=== PATIENT | male | born 1960 | race Caucasian/White ===

== ENCOUNTER 2017-01-09 13:07 | Inpatient (IN) | payer OTHER ==
[2017-01-09 14:01] VITALS: BMI 22.3
[2017-01-09] MEDS ORDERED: LOPERAMIDE HCL 2 MG CAPSULE PO PRN (17:03)
[2017-01-09] MEDS ORDERED: ACETAMINOPHEN 325 MG TABLET (FP) PO PRN (17:03)
[2017-01-09] MEDS ORDERED: MAGNESIUM HYDROX 2400MG/30ML ORAL SUSPENSION 30 ML CUP PO PRN (17:03)
[2017-01-09] MEDS ORDERED: MAG HYDROX/AL HYDROX/SIMETH 30 ML UNIT-DOSE CUP PO PRN (17:03)
[2017-01-09] MEDS ORDERED: hydrOXYzine PAMOATE 50 MG CAPSULE (FP) PO PRN (17:03)
[2017-01-09] MEDS ORDERED: MAGNESIUM CITRATE 300 ML BOTTLE PO PRN (17:03)
[2017-01-09] MEDS ORDERED: NICOTINE POLACRILEX 2 MG GUM BC PRN (17:03)
[2017-01-09] MEDS ORDERED: P-EPHED 60MG/TRIPROLIDI 2.5MG TABLET PO PRN (17:03)
[2017-01-09] MEDS ORDERED: MENTHOL/PHENOL 1 EACH UD MM PRN (17:03)
[2017-01-09] MEDS ORDERED: ALBUTEROL SO4 6.7 GM HFA INHALER IH PRN (17:05)
--- NOTE | 2017-01-09 17:10 | HP ---
Admission [facility] Chief Complaint: requesting inpatient rehab from heroin and cocaine use Allergies/Adverse Reactions: Allergies Allergy/AdvReac Type Severity Reaction Status Date / Time olanzapine [From Zyprexa] Allergy Severe Difficulty Verified 01/09/17 15:54 Breathing quetiapine fumarate AdvReac Intermediate Verified 01/09/17 15:54 [From Seroquel] History of Present Illness: 56 yo m with h/o heroin and cocaine abuse with recent increase in use associated with homelessness, recently made homeless and now requesting rehab, was denied inpat detox this weekend as no withdrawawl sx, does not have withdrwal sx when he stops using heroin last used 3 days ago PMHX nicotien dependence, 1?2 PPD, ASTHMA,major depresssion, not on meds, HIV+, allergies, now with cough no h/o seiuzres, DTS denies alohol or other drug use. has nto been taking hiv meds because of homelessness. viral load previously undetectable , cleared Hep c with treatment Exam Limitations: No Limitations - Ebola screening Have you traveled outside of the country in the last 21 days: No Have you had contact with anyone from an Ebola affected area: No Have you been sick,other than usual withdrawal symptoms: No Do you have a fever: No - Review of Systems Constitutional: Malaise EENT: reports: No Symptoms Reported, Nose Congestion (herion withdrawal sx?) Respiratory: reports: Cough, SOB with Exertion, Productive cough GI: reports: No Symptoms Reported, Poor Appetite, Poor Fluid Intake : reports: No Symptoms Reported Musculoskeletal: reports: No Symptoms Reported Integumentary: reports: No Symptoms Reported Neuro: reports: No Symptoms reported Endocrine: reports: No Symptoms Reported Hematology: reports: No Symptoms Reported Psychiatric: reports: Judgement Intact, Mood/Affect Appropiate, Orientated x3, Agitated, Anxious, Depressed Other Systems: Reviewed and Negative Patient History - Patient Medical History Hx Anemia: No Hx Asthma: Yes (albuterol mdi prn) Hx Chronic Obstructive Pulmonary Disease (COPD): No Hx Cancer: No Hx Cardiac Disorders: No Hx Congestive Heart Failure: No Hx Hypertension: No Hx Hypercholesterolemia: No Hx Pacemaker: No HX Cerebrovascular Accident: No Hx Seizures: No Hx Dementia: No Hx Diabetes: No Hx Gastrointestinal Disorders: No Hx Liver Disease: No Hx Genitourinary Disorders: No Hx Sexually Transmitted Disorders: No Hx Renal Disease (ESRD): No Hx Thyroid Disease: No Hx Human Immunodeficiency Virus (HIV): Yes (SINCE 1982, on HAART) Hx Hepatitis C: Yes (in treatment since 02/23 month ago) Hx Depression: Yes (not on medication, was on zoloft in the past) Hx Suicide Attempt: No Hx Bipolar Disorder: No Hx Schizophrenia: No - Patient Surgical History Past Surgical History: No Hx Neurologic Surgery: No Hx Cataract Extraction: No Hx Cardiac Surgery: No Hx Lung Surgery: No Hx Breast Surgery: No Hx Breast Biopsy: No Hx Abdominal Surgery: No Hx Appendectomy: No Hx Cholecystectomy: No Hx Genitourinary Surgery: No Hx Orthopedic Surgery: No Hx Hysterectomy: No Anesthesia Reaction: (NA) - PPD History Previous Implant?: No Date: 12/04/15 Results: 0 MM PPD to be Administered?: Yes - Reproductive History Patient is a Female of Child Bearing Age (11 -55 yrs old): No Patient : No - Smoking Cessation Smoking history: Current every day smoker Have you smoked in the past 12 months: Yes Aproximately how many cigarettes per day: 10 Cigars Per Day: 0 Hx Chewing Tobacco Use: No Initiated information on smoking cessation: Yes 'Breaking Loose' booklet given: 01/09/17 - Substance & Tx. History Hx Alcohol Use: No Hx Substance Use: Yes Substance Use Type: Cocaine, Heroin Hx Substance Use Treatment: Yes - Substances Abused Heroin Route: Injection Frequency: 3-6 times per week Amount used: 1 BAG Age of first use: 8 Date of Last Use: 01/06/17 Cocaine Route: Injection Frequency: 3-6 times per week Amount used: $30 Age of first use: 11 Date of Last Use: 01/06/17 Family Disease History - Family Disease History Family Disease History: Other: Father (ALCOHOL,), Mother (ALCOHOL, DESEASED) Admission Physical Exam BHS - Vital Signs Vital Signs: Vital Signs - 24 hr 01/09/17 13:59 Temperature 97 F L Pulse Rate 77 Respiratory 20 Rate Blood Pressure 113/74 - Physical General Appearance: Yes: Within Normal Limits, Appropriately Dressed, Disheveled , Mild Distress, Thin, Anxious HEENTM: Yes: EOMI, Hearing grossly Normal, Normal ENT Inspection, Normocephalic , Normal Voice, DANIEL, Nasal Congestion, Rhinorrhea Respiratory: Yes: Within Normal Limits, Chest Non-Tender, Lungs Clear, Normal Breath Sounds, No Respiratory Distress, No Accessory Muscle Use Neck: Yes: Within Normal Limits, No masses,lesions,Nodules, Supple, Trachea in good position Breast: Yes: Breast Exam Deferred Cardiology: Yes: Within Normal Limits, Regular Rhythm, Regular Rate, S1, S2 Abdominal: Yes: Within Normal Limits, Normal Bowel Sounds, Non Tender, Flat, Soft Genitourinary: Yes: Within Normal Limits Back: Yes: Within Normal Limits, Normal Inspection Extremities: Yes: Within Normal Limits, Normal Capillary Refill, Normal Inspection, Normal Range of Motion, Non-Tender Neurological: Yes: 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 NML intact, Fully Oriented, Alert, Motor Strength 5/5, Normal Response, Depressed Affect Integumentary: Yes: Within Normal Limits, Normal Color, Dry, Warm Lymphatic: Yes: Within Normal Limits - Addiitonal Findings: malaise and nasal congestion possibly from heroin withdrawal - Diagnostic (1) Cocaine dependence Current Visit: Yes Status: Chronic Qualifiers: Substance use status: uncomplicated Qualified Code(s): F14.20 - Cocaine dependence, uncomplicated (2) Opioid dependence with withdrawal Current Visit: Yes Status: Chronic (3) Asthma Current Visit: Yes Status: Chronic Qualifiers: Asthma severity: mild intermittent (4) HIV (human immunodeficiency virus infection) Current Visit: Yes Status: Chronic (5) Hepatitis C Current Visit: No Status: Resolved Qualifiers: Viral hepatitis chronicity: chronic Hepatic coma status: without hepatic coma Qualified Code(s): B18.2 - Chronic viral hepatitis C (6) Nicotine dependence Current Visit: Yes Status: Chronic Qualifiers: Nicotine product type: cigarettes Substance use status: uncomplicated Qualified Code(s): F17.210 - Nicotine dependence, cigarettes, uncomplicated (7) Weight loss Current Visit: Yes Status: Acute Cleared for Admission S - Detox or Rehab Claeared for Rehab Admission: Yes [facility] Breath Alcohol Content Breath Alcohol Content: 0 Urine Drug Screen - Results Drug Screen Negative: No Urine Drug Screen Results: ANI-Cocaine Inpatient Rehab Admission - Initial Determination Are CD services needed?: Yes Free of communicable disease: Yes Not in need of hospitalization: Yes - Rehab Admission Criteria Poor recovery environment: Yes Patient is meeting Inpatient Rehab admission criteria:: Yes
[2017-01-09] MEDS ORDERED: TUBERCULIN PPD 5 TU/0.1ML VIAL ID ONE (20:37)
[2017-01-09 21:23] LABS: URINE APPEARANCE SLCLOUDY; URINE BILIRUBIN NEGATIVE (NEGATIVE); URINE BLOOD NEGATIVE (NEGATIVE); URINE COLOR YELLOW; URINE GLUCOSE (UA) NEGATIVE (NEGATIVE); URINE KETONE NEGATIVE (NEGATIVE); URINE LEUK ESTERASE NEGATIVE (NEGATIVE); URINE NITRITE NEGATIVE (NEGATIVE); URINE PROTEIN NEGATIVE (NEGATIVE); URINE UROBILINOGEN NEGATIVE mg/dL (0.2-1.0)
[2017-01-09] MEDS: LORATADINE 10 MG TABLET PO SCH (21:23)
[2017-01-09] MEDS: NICOTINE 14 MG/24 HOURS TOPICAL PATCH TD SCH (21:24)
[2017-01-09] MEDS: diphenhydrAMINE HCL 50 MG CAPSULE PO PRN (21:24)
[2017-01-09] MEDS: THIAMINE HCL 100 MG TABLET (FP) PO SCH (21:24)
[2017-01-09] MEDS: FLUTICASONE PROP 0.05% 16 GM NASAL SPRAY NS SCH (23:07)
[2017-01-10] MEDS: FLUTICASONE PROP 0.05% 16 GM NASAL SPRAY NS SCH (10:10)
[2017-01-10] MEDS: NICOTINE 14 MG/24 HOURS TOPICAL PATCH TD SCH (10:10)
[2017-01-10] MEDS: LORATADINE 10 MG TABLET PO SCH (10:10)
[2017-01-10] MEDS: PRENATAL VITAMINS W/ FOLIC ACID TABLET (FP) PO SCH (10:10)
[2017-01-10] MEDS: guaiFENesin/D-METHORPHAN HB 10 ML UNIT-DOSE CUPS PO PRN ×2 (10:11→21:21)
[2017-01-10 14:06] LABS: MCH 28.9 pg (25.7-33.7); MCHC 32.1 g/dl (32.0-35.9); MEAN CELL VOLUME 90.1 fl (80-96); MEAN PLT VOLUME 7.9 fl (7.5-11.1); PLATELET COUNT 237 K/MM3 (134-434); RDW 14.8 % (11.9-15.9); WHITE BLOOD COUNT 4.2 K/mm3 (4.0-10.0)
[2017-01-10 14:31] LABS: ALBUMIN 3.5 g/dl (3.4-5.0); ALK PHOS 94 U/L (45-117); ANION GAP 8 (8-16); BILIRUBIN,TOTAL 0.5 mg/dL (0.2-1.0); CALCIUM 8.8 mg/dL (8.5-10.1); CO2 29 mmol/L (21-32); CREATININE 0.9 mg/dL (0.7-1.3); GLUCOSE,RANDOM 69 mg/dL (74-106); SGOT/AST 8 U/L (15-37); SGPT/ALT 12 U/L (12-78)
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
[2017-01-10] MEDS: THIAMINE HCL 100 MG TABLET (FP) PO SCH (21:19)
--- NOTE | 2017-01-10 22:28 | EKG ---
Test Reason : Blood Pressure : / mmHG Vent. Rate : 072 BPM Atrial Rate : 072 BPM P-R Int : 148 ms QRS Dur : 078 ms QT Int : 380 ms P-R-T Axes : 056 051 056 degrees QTc Int : 416 ms NORMAL SINUS RHYTHM NORMAL ECG NO PREVIOUS ECGS AVAILABLE Confirmed by DEBORAH ULLOA MD ([id number]) on 01/10/2017 10:28:29 PM Referred By: Viky Sánchez Confirmed By:DEBORAH ULLOA MD
[2017-01-11] MEDS: IBUPROFEN 400 MG TABLET (FP) PO PRN (06:15)
[2017-01-11] MEDS: NICOTINE 14 MG/24 HOURS TOPICAL PATCH TD SCH (10:07)
[2017-01-11] MEDS: PRENATAL VITAMINS W/ FOLIC ACID TABLET (FP) PO SCH (10:07)
[2017-01-11] MEDS: LORATADINE 10 MG TABLET PO SCH (10:07)
[2017-01-11] MEDS: FLUTICASONE PROP 0.05% 16 GM NASAL SPRAY NS SCH (10:07)
[2017-01-11] MEDS: guaiFENesin/D-METHORPHAN HB 10 ML UNIT-DOSE CUPS PO PRN ×2 (10:09→21:26)
[2017-01-11] MEDS: diphenhydrAMINE HCL 50 MG CAPSULE PO PRN (21:25)
[2017-01-11] MEDS: THIAMINE HCL 100 MG TABLET (FP) PO SCH (21:25)
[2017-01-12] MEDS: LORATADINE 10 MG TABLET PO SCH (10:11)
[2017-01-12] MEDS: guaiFENesin/D-METHORPHAN HB 10 ML UNIT-DOSE CUPS PO PRN ×2 (10:12→21:24)
[2017-01-12] MEDS: PRENATAL VITAMINS W/ FOLIC ACID TABLET (FP) PO SCH (10:12)
[2017-01-12] MEDS: FLUTICASONE PROP 0.05% 16 GM NASAL SPRAY NS SCH (11:07)
[2017-01-12] MEDS: NICOTINE 14 MG/24 HOURS TOPICAL PATCH TD SCH (11:07)
[2017-01-12] MEDS: IBUPROFEN 400 MG TABLET (FP) PO PRN ×2 (14:40→21:23)
[2017-01-12] MEDS: THIAMINE HCL 100 MG TABLET (FP) PO SCH (21:22)
[2017-01-13] MEDS: FLUTICASONE PROP 0.05% 16 GM NASAL SPRAY NS SCH (10:09)
[2017-01-13] MEDS: LORATADINE 10 MG TABLET PO SCH (10:09)
[2017-01-13] MEDS: PRENATAL VITAMINS W/ FOLIC ACID TABLET (FP) PO SCH (10:09)
[2017-01-13] MEDS: NICOTINE 14 MG/24 HOURS TOPICAL PATCH TD SCH (10:09)
[2017-01-13] MEDS: IBUPROFEN 400 MG TABLET (FP) PO PRN ×2 (10:10→16:57)
[2017-01-13] MEDS: guaiFENesin/D-METHORPHAN HB 10 ML UNIT-DOSE CUPS PO PRN ×2 (10:10→21:21)
[2017-01-13] MEDS: THIAMINE HCL 100 MG TABLET (FP) PO SCH (21:19)
[2017-01-13] MEDS: diphenhydrAMINE HCL 50 MG CAPSULE PO PRN (21:20)
[2017-01-14] MEDS: FLUTICASONE PROP 0.05% 16 GM NASAL SPRAY NS SCH (10:20)
[2017-01-14] MEDS: LORATADINE 10 MG TABLET PO SCH (10:20)
[2017-01-14] MEDS: NICOTINE 14 MG/24 HOURS TOPICAL PATCH TD SCH (10:20)
[2017-01-14] MEDS: PRENATAL VITAMINS W/ FOLIC ACID TABLET (FP) PO SCH (10:20)
[2017-01-14] MEDS: guaiFENesin/D-METHORPHAN HB 10 ML UNIT-DOSE CUPS PO PRN ×2 (10:22→21:11)
[2017-01-14] MEDS: IBUPROFEN 400 MG TABLET (FP) PO PRN ×2 (10:22→21:12)
[2017-01-14] MEDS: THIAMINE HCL 100 MG TABLET (FP) PO SCH (21:10)
[2017-01-14] MEDS: diphenhydrAMINE HCL 50 MG CAPSULE PO PRN (21:11)
[2017-01-15] MEDS: PRENATAL VITAMINS W/ FOLIC ACID TABLET (FP) PO SCH (09:54)
[2017-01-15] MEDS: LORATADINE 10 MG TABLET PO SCH (09:54)
[2017-01-15] MEDS: NICOTINE 14 MG/24 HOURS TOPICAL PATCH TD SCH (09:54)
[2017-01-15] MEDS: FLUTICASONE PROP 0.05% 16 GM NASAL SPRAY NS SCH (09:55)
[2017-01-15] MEDS: IBUPROFEN 400 MG TABLET (FP) PO PRN ×2 (09:56→21:21)
[2017-01-15] MEDS: guaiFENesin/D-METHORPHAN HB 10 ML UNIT-DOSE CUPS PO PRN ×2 (09:57→21:19)
[2017-01-15] MEDS: THIAMINE HCL 100 MG TABLET (FP) PO SCH (21:18)
[2017-01-16] MEDS: PRENATAL VITAMINS W/ FOLIC ACID TABLET (FP) PO SCH (10:22)
[2017-01-16] MEDS: FLUTICASONE PROP 0.05% 16 GM NASAL SPRAY NS SCH (10:22)
[2017-01-16] MEDS: LORATADINE 10 MG TABLET PO SCH (10:22)
[2017-01-16] MEDS: NICOTINE 14 MG/24 HOURS TOPICAL PATCH TD SCH (10:23)
[2017-01-16] MEDS: IBUPROFEN 400 MG TABLET (FP) PO PRN (10:24)
[2017-01-16] MEDS: PANTOPRAZOLE 40 MG TABLET (FP) PO SCH (15:14)
[2017-01-16] MEDS: NAPROXEN 500 MG TABLET (FP) PO SCH (21:02)
[2017-01-16] MEDS: diphenhydrAMINE HCL 50 MG CAPSULE PO PRN (21:03)
[2017-01-16] MEDS: THIAMINE HCL 100 MG TABLET (FP) PO SCH (21:03)
[2017-01-16] MEDS: AMOXICILLIN 250 MG CAPSULE PO SCH (21:03)
[2017-01-17] MEDS: NAPROXEN 500 MG TABLET (FP) PO SCH ×2 (10:07→21:31)
[2017-01-17] MEDS: AMOXICILLIN 250 MG CAPSULE PO SCH ×2 (10:07→23:13)
[2017-01-17] MEDS: LORATADINE 10 MG TABLET PO SCH (10:07)
[2017-01-17] MEDS: PRENATAL VITAMINS W/ FOLIC ACID TABLET (FP) PO SCH (10:08)
[2017-01-17] MEDS: PANTOPRAZOLE 40 MG TABLET (FP) PO SCH (10:08)
[2017-01-17] MEDS: FLUTICASONE PROP 0.05% 16 GM NASAL SPRAY NS SCH (10:08)
[2017-01-17] MEDS: NICOTINE 14 MG/24 HOURS TOPICAL PATCH TD SCH (10:08)
[2017-01-17] MEDS: diphenhydrAMINE HCL 50 MG CAPSULE PO PRN (21:31)
[2017-01-17] MEDS: THIAMINE HCL 100 MG TABLET (FP) PO SCH (21:31)
[2017-01-18] MEDS: PANTOPRAZOLE 40 MG TABLET (FP) PO SCH (09:51)
[2017-01-18] MEDS: LORATADINE 10 MG TABLET PO SCH (09:51)
[2017-01-18] MEDS: PRENATAL VITAMINS W/ FOLIC ACID TABLET (FP) PO SCH (09:51)
[2017-01-18] MEDS: AMOXICILLIN 250 MG CAPSULE PO SCH ×2 (09:51→21:25)
[2017-01-18] MEDS: NAPROXEN 500 MG TABLET (FP) PO SCH ×2 (09:52→21:25)
[2017-01-18] MEDS: FLUTICASONE PROP 0.05% 16 GM NASAL SPRAY NS SCH (09:52)
[2017-01-18] MEDS: NICOTINE 14 MG/24 HOURS TOPICAL PATCH TD SCH (09:52)
[2017-01-18] MEDS: guaiFENesin/D-METHORPHAN HB 10 ML UNIT-DOSE CUPS PO PRN (21:26)
[2017-01-18] MEDS: THIAMINE HCL 100 MG TABLET (FP) PO SCH (21:27)
[2017-01-19 06:56] VITALS: TEMP 97.4
[2017-01-19] MEDS: NAPROXEN 500 MG TABLET (FP) PO SCH ×2 (10:23→21:26)
[2017-01-19] MEDS: PANTOPRAZOLE 40 MG TABLET (FP) PO SCH (10:23)
[2017-01-19] MEDS: NICOTINE 14 MG/24 HOURS TOPICAL PATCH TD SCH (10:23)
[2017-01-19] MEDS: PRENATAL VITAMINS W/ FOLIC ACID TABLET (FP) PO SCH (10:23)
[2017-01-19] MEDS: AMOXICILLIN 250 MG CAPSULE PO SCH ×2 (10:23→21:26)
[2017-01-19] MEDS: FLUTICASONE PROP 0.05% 16 GM NASAL SPRAY NS SCH (10:23)
[2017-01-19] MEDS: LORATADINE 10 MG TABLET PO SCH (10:23)
[2017-01-19] MEDS: guaiFENesin/D-METHORPHAN HB 10 ML UNIT-DOSE CUPS PO PRN (21:27)
[2017-01-19] MEDS: THIAMINE HCL 100 MG TABLET (FP) PO SCH (21:27)
[2017-01-19] MEDS: diphenhydrAMINE HCL 50 MG CAPSULE PO PRN (23:45)
[2017-01-20 07:15] VITALS: BP 134/80; PULSE 64
--- NOTE | 2017-01-20 11:25 | PN ---
S Progress Note Note: as was reported by the staff patient signed out ama this morning, please see medical staff notes.
== END 2017-01-20 07:35 | disposition home or self-care (01) | DRG 772 ==
LOC: YASAS 13:07 → Y5N 17:42
PROVIDERS: ADMIT Psychiatry & Neurology Psychiatry; ATTEND Psychiatry & Neurology Psychiatry
PROC: HZ42ZZZ Group Counseling for Substance Abuse Treatment, Cognitive-Behavioral (ICD-10-PCS; principal; 2017-01-09)
DX: F11.20 Opioid dependence, uncomplicated (principal); F14.20 Cocaine dependence, uncomplicated; F17.210 Nicotine dependence, cigarettes, uncomplicated; F32.9 Major depressive disorder, single episode, unspecified; B18.2 Chronic viral hepatitis C; Z21 Asymptomatic human immunodeficiency virus [HIV] infection status; J45.909 Unspecified asthma, uncomplicated; Z59.0 Homelessness
CPT/HCPCS: 36415; 80053; 81003; 85027; 86593; 93005; 93010

== ENCOUNTER 2017-05-07 11:02 | Inpatient (IN) | payer OTHER ==
[2017-05-07 11:36] VITALS: BMI 22.8
--- NOTE | 2017-05-07 12:12 | HP ---
CIWA Score - CIWA Score Nausea/Vomitin Muscle Tremors: 3 Anxiety: 3 Agitation: 3 Paroxysmal Sweats: 2 Orientation: 0-Oriented Tacttile Disturbances: 2-Mild Itch/Numbness/Burn Auditory Disturbances: 2-Mild Harshness/Frighten Visual Disturbances: 1-Very Mild Sensitivity Headache: 2-Mild CIWA-Ar Total Score: 21 Admission ROS BHS - HPI Chief Complaint: i need help to stop drinking alcohol,cocaine,heroin Allergies/Adverse Reactions: Allergies Allergy/AdvReac Type Severity Reaction Status Date / Time olanzapine [From Zyprexa] Allergy Severe Difficulty Verified 01/09/17 15:54 Breathing quetiapine fumarate AdvReac Intermediate Verified 01/09/17 15:54 [From Seroquel] History of Present Illness: this 56 years old male with alcohol,cocaine dependence heroin dependence, withdrawal symptom,seeking detox,last treatment rehab [facility]01/09/17 to 01/20/17 hiv since 1984 weight loss hepatitis c treated in 2014 asthma depression longest period of sobriety 5 years Exam Limitations: No Limitations - Ebola screening Have you traveled outside of the country in the last 21 days: No Have you had contact with anyone from an Ebola affected area: No Have you been sick,other than usual withdrawal symptoms: No Do you have a fever: No - Review of Systems Constitutional: Chills, Loss of Appetite, Malaise, Night Sweats, Changes in sleep, Weakness, Unintentional Wgt. Loss EENT: reports: Tearing, Nose Congestion Respiratory: reports: Other (asthma) Cardiac: reports: No Symptoms Reported GI: reports: Abd. Pain w/ defecation, Blood Streaked Bowels, Constipated, Diarrhea : reports: No Symptoms Reported Musculoskeletal: reports: Back Pain, Joint Pain, Muscle Pain Integumentary: reports: Dryness Neuro: reports: Headache, Tremors Endocrine: reports: No Symptoms Reported Hematology: reports: No Symptoms Reported, Other (hiv) Psychiatric: reports: Depressed Patient History - Patient Medical History Hx Anemia: No Hx Asthma: Yes (on albuterol inhaler) Hx Chronic Obstructive Pulmonary Disease (COPD): No Hx Cancer: No Hx Cardiac Disorders: No Hx Congestive Heart Failure: No Hx Hypertension: No Hx Hypercholesterolemia: No Hx Pacemaker: No HX Cerebrovascular Accident: No Hx Seizures: No Hx Dementia: No Hx Diabetes: No Hx Gastrointestinal Disorders: No Hx Liver Disease: No Hx Genitourinary Disorders: No Hx Sexually Transmitted Disorders: No Hx Renal Disease (ESRD): No Hx Thyroid Disease: No Hx Human Immunodeficiency Virus (HIV): Yes (SINCE 1982, on HAART) Hx Hepatitis C: Yes (in treatment since 112 month ago) Hx Depression: Yes Hx Suicide Attempt: No Hx Bipolar Disorder: No Hx Schizophrenia: No Other Medical History: no suicidal,no homicidal - Patient Surgical History Past Surgical History: No Hx Neurologic Surgery: No Hx Cataract Extraction: No Hx Cardiac Surgery: No Hx Lung Surgery: No Hx Breast Surgery: No Hx Breast Biopsy: No Hx Abdominal Surgery: No Hx Appendectomy: No Hx Cholecystectomy: No Hx Genitourinary Surgery: No Hx Orthopedic Surgery: No Hx Hysterectomy: No Anesthesia Reaction: (NA) - PPD History Previous Implant?: Yes Documented Results: Negative w/proof Date: 01/11/17 Results: 0 MM PPD to be Administered?: No - Smoking Cessation Smoking history: Current every day smoker Have you smoked in the past 12 months: Yes Aproximately how many cigarettes per day: 10 Cigars Per Day: 0 Hx Chewing Tobacco Use: No Initiated information on smoking cessation: Yes 'Breaking Loose' booklet given: 05/07/17 - Substance & Tx. History Hx Alcohol Use: Yes Hx Substance Use: Yes Substance Use Type: Alcohol, Cocaine Hx Substance Use Treatment: Yes ([facility] to 01/20/17 rehab) - Substances Abused Alcohol Route: Oral Frequency: Daily Amount used: 6 packs of 24 ozs of beer Age of first use: 16 Date of Last Use: 05/06/17 Cocaine Route: Injection Frequency: 3-6 times per week Amount used: 80$ Age of first use: 11 Date of Last Use: 05/05/17 Heroin Route: Injection Frequency: 3-6 times per week Amount used: 3 bags Age of first use: 8 Date of Last Use: 05/05/17 Family Disease History - Family Disease History Family Disease History: Other: Father (ALCOHOL,), Mother (ALCOHOL, DESEASED) Admission Physical Exam BHS - Vital Signs Vital Signs: Vital Signs - 24 hr 05/07/17 11:30 Temperature 96 F L Pulse Rate 64 Respiratory 20 Rate Blood Pressure 131/82 - Physical General Appearance: Yes: Moderate Distress, Tremorous, Irritable, Sweating, Anxious HEENTM: Yes: Normal ENT Inspection, Normocephalic, DANIEL, Pharynx Normal, Microcephalic Respiratory: Yes: Within Normal Limits, Normal Breath Sounds Neck: Yes: Within Normal Limits, Supple, Trachea in good position Breast: Yes: Within Normal Limits Cardiology: Yes: Within Normal Limits, Regular Rhythm, Regular Rate, S1, S2 Abdominal: Yes: Within Normal Limits, Normal Bowel Sounds, Non Tender, Flat, Soft Genitourinary: Yes: Within Normal Limits Back: Yes: Muscle Spasm Extremities: Yes: Within Normal Limits, Tremors 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, Fully Oriented, Alert, Motor Strength 5/5 Integumentary: Yes: Dry Lymphatic: Yes: Within Normal Limits - Diagnostic (1) Alcohol dependence with uncomplicated withdrawal Current Visit: Yes Status: Acute (2) Opioid dependence Current Visit: No Status: Acute (3) Weight loss Current Visit: No Status: Acute (4) Asthma Current Visit: No Status: Chronic Qualifiers: Asthma severity: mild intermittent (5) Cocaine dependence Current Visit: No Status: Chronic Qualifiers: Substance use status: uncomplicated Qualified Code(s): F14.20 - Cocaine dependence, uncomplicated (6) HIV (human immunodeficiency virus infection) Current Visit: No Status: Chronic (7) Nicotine dependence Current Visit: No Status: Chronic Qualifiers: Nicotine product type: cigarettes Substance use status: uncomplicated Qualified Code(s): F17.210 - Nicotine dependence, cigarettes, uncomplicated (8) Depression Current Visit: Yes Status: Acute Cleared for Admission [facility] - Detox or Rehab [facility] Level of Care: Medically Managed Detox Regimen/Protocol: Librium (urine for drug scree showed negative for opiate ,patien is aware he will not get methadone) [facility] Breath Alcohol Content Breath Alcohol Content: 0 Urine Drug Screen - Results Drug Screen Negative: No Urine Drug Screen Results: ANI-Cocaine
[2017-05-07] MEDS ORDERED: hydrOXYzine PAMOATE 50 MG CAPSULE (FP) PO PRN (12:27)
[2017-05-07] MEDS ORDERED: IBUPROFEN 400 MG TABLET (FP) PO PRN (12:27)
[2017-05-07] MEDS ORDERED: MAGNESIUM CITRATE 300 ML BOTTLE PO PRN (12:27)
[2017-05-07] MEDS ORDERED: NICOTINE POLACRILEX 2 MG GUM BC PRN (12:27)
[2017-05-07] MEDS ORDERED: P-EPHED 60MG/TRIPROLIDI 2.5MG TABLET PO PRN (12:27)
[2017-05-07] MEDS ORDERED: MAGNESIUM HYDROX 2400MG/30ML ORAL SUSPENSION 30 ML CUP PO PRN (12:27)
[2017-05-07] MEDS ORDERED: LOPERAMIDE HCL 2 MG CAPSULE PO PRN (12:27)
[2017-05-07] MEDS ORDERED: chlordiazePOXIDE HCL 25 MG CAPSULE PO PRN (12:27)
[2017-05-07] MEDS ORDERED: MENTHOL/PHENOL 1 EACH UD MM PRN (12:27)
[2017-05-07] MEDS ORDERED: ACETAMINOPHEN 325 MG TABLET (FP) PO PRN (12:27)
[2017-05-07] MEDS ORDERED: MAG HYDROX/AL HYDROX/SIMETH 30 ML UNIT-DOSE CUP PO PRN (12:27)
[2017-05-07] MEDS: CYCLOBENZAPRINE HCL 10 MG TABLET (FP) PO SCH ×2 (14:45→22:28)
[2017-05-07] MEDS ORDERED: chlordiazePOXIDE HCL 25 MG CAPSULE PO ONE (15:30)
[2017-05-07 16:35] LABS: URINE APPEARANCE CLEAR; URINE BILIRUBIN NEGATIVE (NEGATIVE); URINE BLOOD NEGATIVE (NEGATIVE); URINE COLOR YELLOW; URINE GLUCOSE (UA) NEGATIVE (NEGATIVE); URINE KETONE NEGATIVE (NEGATIVE); URINE LEUK ESTERASE NEGATIVE (NEGATIVE); URINE NITRITE NEGATIVE (NEGATIVE); URINE PROTEIN NEGATIVE (NEGATIVE); URINE UROBILINOGEN NEGATIVE mg/dL (0.2-1.0)
[2017-05-07] MEDS: chlordiazePOXIDE HCL 25 MG CAPSULE PO SCH ×2 (18:00→22:28)
[2017-05-07] MEDS: THIAMINE HCL 100 MG TABLET (FP) PO SCH (22:28)
[2017-05-07] MEDS: cloNIDine HCL 0.1 MG TABLET PO SCH (22:28)
[2017-05-08] MEDS: CYCLOBENZAPRINE HCL 10 MG TABLET (FP) PO SCH ×3 (05:30→22:21)
[2017-05-08] MEDS: chlordiazePOXIDE HCL 25 MG CAPSULE PO SCH ×4 (05:30→22:22)
[2017-05-08 09:55] LABS: HEMOGLOBIN 13.1 GM/dL (11.7-16.9); MCH 29.4 pg (25.7-33.7); MCHC 32.8 g/dl (32.0-35.9); MEAN CELL VOLUME 89.6 fl (80-96); MEAN PLT VOLUME 7.8 fl (7.5-11.1); PLATELET COUNT 239 K/MM3 (134-434); RBC 4.47 M/mm3 (4.00-5.60); RDW 14.4 % (11.9-15.9); WHITE BLOOD COUNT 9.2 K/mm3 (4.0-10.0)
[2017-05-08 10:24] LABS: ALBUMIN 3.2 g/dl (3.4-5.0); ANION GAP 7 (8-16); BLOOD UREA NITROGEN 21 mg/dL (7-18); CALCIUM 8.2 mg/dL (8.5-10.1); CHLORIDE 109 mmol/L (98-107); CO2 23 mmol/L (21-32); GLUCOSE,RANDOM 104 mg/dL (74-106); POTASSIUM 3.9 mmol/L (3.5-5.1); SGOT/AST 11 U/L (15-37); SODIUM 139 mmol/L (136-145)
[2017-05-08 10:26] LABS: ALK PHOS 65 U/L (45-117); BILIRUBIN,TOTAL 0.4 mg/dL (0.2-1.0); SGPT/ALT 16 U/L (12-78); TOT PROT 6.9 g/dl (6.4-8.2)
--- NOTE | 2017-05-08 10:39 | EKG ---
Test Reason : Blood Pressure : / mmHG Vent. Rate : 064 BPM Atrial Rate : 064 BPM P-R Int : 154 ms QRS Dur : 080 ms QT Int : 404 ms P-R-T Axes : 050 037 049 degrees QTc Int : 416 ms NORMAL SINUS RHYTHM NORMAL ECG WHEN COMPARED WITH ECG OF 09-JAN-2017 22:16, NO SIGNIFICANT CHANGE WAS FOUND Confirmed by MISTY VIEIRA MD ([id number]) on 05/08/2017 10:39:03 AM Referred By: Confirmed By:MISTY VIEIRA MD
[2017-05-08] MEDS: PRENATAL VITAMINS W/ FOLIC ACID TABLET (FP) PO SCH (11:45)
[2017-05-08] MEDS: cloNIDine HCL 0.1 MG TABLET PO SCH ×2 (11:46→22:21)
--- NOTE | 2017-05-08 11:46 | PN ---
S CIWA - CIWA Score Nausea/Vomitin Muscle Tremors: 3 Anxiety: 3 Agitation: 3 Paroxysmal Sweats: 1-Minimal Palms Moist Orientation: 0-Oriented Tacttile Disturbances: 1-Very Mild Itch/Numbness Auditory Disturbances: 1-Very Mild Visual Disturbances: 0-None Headache: 2-Mild CIWA-Ar Total Score: 17 BHS Progress Note (SOAP) Subjective: ALERT,IRRITABLE,ANXIOUS,INTERRUPTED SLEEP,TREMOR,PAIN IN THE BODY,BACK Objective: 05/08/17 11:43 Vital Signs Temperature 99.0 F 05/08/17 06:00 Pulse Rate 100 H 05/08/17 06:00 Respiratory Rate 16 05/08/17 06:00 Blood Pressure 102/56 05/08/17 06:00 O2 Sat by Pulse Oximetry (%) EKG NSR,NORMAL ECG Laboratory Last Values WBC 9.2 K/mm3 (4.0-10.0) D 05/08/17 07:30 RBC 4.47 M/mm3 (4.00-5.60) 05/08/17 07:30 Hgb 13.1 GM/dL (11.7-16.9) 05/08/17 07:30 Hct 40.0 % (35.4-49) 05/08/17 07:30 MCV 89.6 fl (80-96) 05/08/17 07:30 MCH 29.4 pg (25.7-33.7) 05/08/17 07:30 MCHC 32.8 g/dl (32.0-35.9) 05/08/17 07:30 RDW 14.4 % (11.9-15.9) 05/08/17 07:30 Plt Count 239 K/MM3 (134-434) 05/08/17 07:30 MPV 7.8 fl (7.5-11.1) 05/08/17 07:30 Sodium 139 mmol/L (136-145) 05/08/17 07:30 Potassium 3.9 mmol/L (3.5-5.1) 05/08/17 07:30 Chloride 109 mmol/L (98-107) H 05/08/17 07:30 Carbon Dioxide 23 mmol/L (21-32) D 05/08/17 07:30 Anion Gap 7 (8-16) L 05/08/17 07:30 BUN 21 mg/dL (7-18) H 05/08/17 07:30 Creatinine 1.0 mg/dL (0.7-1.3) 05/08/17 07:30 Creat Clearance w eGFR > 60 (>60) 05/08/17 07:30 Random Glucose 104 mg/dL (74-106) D 05/08/17 07:30 Calcium 8.2 mg/dL (8.5-10.1) L 05/08/17 07:30 Total Bilirubin 0.4 mg/dL (0.2-1.0) 05/08/17 07:30 AST 11 U/L (15-37) L D 05/08/17 07:30 ALT 16 U/L (12-78) D 05/08/17 07:30 Alkaline Phosphatase 65 U/L (45-117) D 05/08/17 07:30 Total Protein 6.9 g/dl (6.4-8.2) 05/08/17 07:30 Albumin 3.2 g/dl (3.4-5.0) L 05/08/17 07:30 Urine Color Yellow 05/07/17 15:33 Urine Appearance Clear 05/07/17 15:33 Urine pH 6.0 (5.0-8.0) 05/07/17 15:33 Ur Specific [place] 1.023 (1.001-1.035) 05/07/17 15:33 Urine Protein Negative (NEGATIVE) 05/07/17 15:33 Urine Glucose (UA) Negative (NEGATIVE) 05/07/17 15:33 Urine Ketones Negative (NEGATIVE) 05/07/17 15:33 Urine Blood Negative (NEGATIVE) 05/07/17 15:33 Urine Nitrite Negative (NEGATIVE) 05/07/17 15:33 Urine Bilirubin Negative (NEGATIVE) 05/07/17 15:33 Urine Urobilinogen Negative mg/dL (0.2-1.0) 05/07/17 15:33 Ur Leukocyte Esterase Negative (NEGATIVE) 05/07/17 15:33 Assessment: 05/08/17 11:45 WITHDRAWAL SYMPTOM Plan: CONTINUE DETOX
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
[2017-05-08] MEDS: THIAMINE HCL 100 MG TABLET (FP) PO SCH (22:21)
[2017-05-08] MEDS: guaiFENesin/D-METHORPHAN HB 10 ML UNIT-DOSE CUPS PO PRN (22:22)
[2017-05-09] MEDS: CYCLOBENZAPRINE HCL 10 MG TABLET (FP) PO SCH ×3 (05:21→22:43)
[2017-05-09] MEDS: chlordiazePOXIDE HCL 25 MG CAPSULE PO SCH ×2 (05:21→10:40)
[2017-05-09] MEDS ORDERED: ALBUTEROL SO4 18 GM HFA INHALER IH PRN (06:12)
[2017-05-09] MEDS: PRENATAL VITAMINS W/ FOLIC ACID TABLET (FP) PO SCH (10:40)
[2017-05-09] MEDS: cloNIDine HCL 0.1 MG TABLET PO SCH ×2 (10:40→22:43)
--- NOTE | 2017-05-09 12:57 | PN ---
[facility] CIWA - CIWA Score Nausea/Vomitin-Mild Nausea/No Vomiting Muscle Tremors: 4-Moderate,w/Arms Extend Anxiety: 3 Agitation: 1-Slight > Activity Paroxysmal Sweats: 3 Orientation: 0-Oriented Tacttile Disturbances: 1-Very Mild Itch/Numbness Auditory Disturbances: 0-None Visual Disturbances: 0-None Headache: 3-Moderate CIWA-Ar Total Score: 16 S Progress Note (SOAP) Subjective: Alert, chills, sweats, interrupted sleep, headache, body aches Objective: 05/09/17 12:54 Vital Signs Temperature 97.7 F 05/09/17 10:17 Pulse Rate 118 H 05/09/17 10:17 Respiratory Rate 18 05/09/17 10:17 Blood Pressure 110/57 05/09/17 10:17 O2 Sat by Pulse Oximetry (%) Laboratory Last Values WBC 9.2 K/mm3 (4.0-10.0) D 05/08/17 07:30 RBC 4.47 M/mm3 (4.00-5.60) 05/08/17 07:30 Hgb 13.1 GM/dL (11.7-16.9) 05/08/17 07:30 Hct 40.0 % (35.4-49) 05/08/17 07:30 MCV 89.6 fl (80-96) 05/08/17 07:30 MCH 29.4 pg (25.7-33.7) 05/08/17 07:30 MCHC 32.8 g/dl (32.0-35.9) 05/08/17 07:30 RDW 14.4 % (11.9-15.9) 05/08/17 07:30 Plt Count 239 K/MM3 (134-434) 05/08/17 07:30 MPV 7.8 fl (7.5-11.1) 05/08/17 07:30 Sodium 139 mmol/L (136-145) 05/08/17 07:30 Potassium 3.9 mmol/L (3.5-5.1) 05/08/17 07:30 Chloride 109 mmol/L (98-107) H 05/08/17 07:30 Carbon Dioxide 23 mmol/L (21-32) D 05/08/17 07:30 Anion Gap 7 (8-16) L 05/08/17 07:30 BUN 21 mg/dL (7-18) H 05/08/17 07:30 Creatinine 1.0 mg/dL (0.7-1.3) 05/08/17 07:30 Creat Clearance w eGFR > 60 (>60) 05/08/17 07:30 Random Glucose 104 mg/dL (74-106) D 05/08/17 07:30 Calcium 8.2 mg/dL (8.5-10.1) L 05/08/17 07:30 Total Bilirubin 0.4 mg/dL (0.2-1.0) 05/08/17 07:30 AST 11 U/L (15-37) L D 05/08/17 07:30 ALT 16 U/L (12-78) D 05/08/17 07:30 Alkaline Phosphatase 65 U/L (45-117) D 05/08/17 07:30 Total Protein 6.9 g/dl (6.4-8.2) 05/08/17 07:30 Albumin 3.2 g/dl (3.4-5.0) L 05/08/17 07:30 Urine Color Yellow 05/07/17 15:33 Urine Appearance Clear 05/07/17 15:33 Urine pH 6.0 (5.0-8.0) 05/07/17 15:33 Ur Specific [place] 1.023 (1.001-1.035) 05/07/17 15:33 Urine Protein Negative (NEGATIVE) 05/07/17 15:33 Urine Glucose (UA) Negative (NEGATIVE) 05/07/17 15:33 Urine Ketones Negative (NEGATIVE) 05/07/17 15:33 Urine Blood Negative (NEGATIVE) 05/07/17 15:33 Urine Nitrite Negative (NEGATIVE) 05/07/17 15:33 Urine Bilirubin Negative (NEGATIVE) 05/07/17 15:33 Urine Urobilinogen Negative mg/dL (0.2-1.0) 05/07/17 15:33 Ur Leukocyte Esterase Negative (NEGATIVE) 05/07/17 15:33 RPR Titer Nonreactive (NONREACTIVE) 05/08/17 07:30 Labs noted Assessment: 05/09/17 12:55 withdrawal symptoms Plan: Continue detox Increase fluids Acetaminophen for Headache PRN Continue to monitor
[2017-05-09] MEDS: chlordiazePOXIDE 5 MG CAPSULE PO SCH ×2 (18:04→22:43)
[2017-05-09] MEDS: THIAMINE HCL 100 MG TABLET (FP) PO SCH (22:43)
[2017-05-10] MEDS: CYCLOBENZAPRINE HCL 10 MG TABLET (FP) PO SCH ×3 (05:39→22:33)
[2017-05-10] MEDS: chlordiazePOXIDE 5 MG CAPSULE PO SCH ×2 (05:39→10:37)
[2017-05-10] MEDS: cloNIDine HCL 0.1 MG TABLET PO SCH ×2 (10:37→22:33)
[2017-05-10] MEDS: PRENATAL VITAMINS W/ FOLIC ACID TABLET (FP) PO SCH (10:37)
[2017-05-10] MEDS: guaiFENesin/D-METHORPHAN HB 10 ML UNIT-DOSE CUPS PO PRN (10:40)
--- NOTE | 2017-05-10 11:32 | PN ---
[facility] Progress Note (SOAP) Subjective: interrupted sleep, sweats , shakes ,nasal congestion, cough Objective: 05/10/17 11:29 Vital Signs Temperature 98.2 F 05/10/17 04:00 Pulse Rate 75 05/10/17 04:00 Respiratory Rate 16 05/10/17 04:00 Blood Pressure 101/64 05/10/17 04:00 O2 Sat by Pulse Oximetry (%) Laboratory Tests 05/07/17 05/08/17 05/08/17 15:33 07:30 07:30 WBC 9.2 D RBC 4.47 Hgb 13.1 Hct 40.0 MCV 89.6 MCH 29.4 MCHC 32.8 RDW 14.4 Plt Count 239 MPV 7.8 Sodium 139 Potassium 3.9 Chloride 109 H Carbon Dioxide 23 D Anion Gap 7 L BUN 21 H Creatinine 1.0 Creat Clearance w eGFR > 60 Random Glucose 104 D Calcium 8.2 L Total Bilirubin 0.4 AST 11 L D ALT 16 D Alkaline Phosphatase 65 D Total Protein 6.9 Albumin 3.2 L Urine Color Yellow Urine Appearance Clear Urine pH 6.0 Ur Specific [place] 1.023 Urine Protein Negative Urine Glucose (UA) Negative Urine Ketones Negative Urine Blood Negative Urine Nitrite Negative Urine Bilirubin Negative Urine Urobilinogen Negative Ur Leukocyte Esterase Negative RPR Titer 05/08/17 07:30 WBC RBC Hgb Hct MCV MCH MCHC RDW Plt Count MPV Sodium Potassium Chloride Carbon Dioxide Anion Gap BUN Creatinine Creat Clearance w eGFR Random Glucose Calcium Total Bilirubin AST ALT Alkaline Phosphatase Total Protein Albumin Urine Color Urine Appearance Urine pH Ur Specific [place] Urine Protein Urine Glucose (UA) Urine Ketones Urine Blood Urine Nitrite Urine Bilirubin Urine Urobilinogen Ur Leukocyte Esterase RPR Titer Nonreactive pt aox3 in nad ambulating + nasal congestion Assessment: 05/10/17 11:31 withdrawal sx's nasal lucía. HIV 05/10/17 11:32 Plan: continue detox increase fluids flonase nasal
[2017-05-10] MEDS: chlordiazePOXIDE HCL 10 MG CAPSULE PO SCH ×2 (17:37→22:33)
[2017-05-10] MEDS: THIAMINE HCL 100 MG TABLET (FP) PO SCH (22:33)
[2017-05-11] MEDS: chlordiazePOXIDE HCL 10 MG CAPSULE PO SCH (05:32)
[2017-05-11] MEDS: CYCLOBENZAPRINE HCL 10 MG TABLET (FP) PO SCH (05:33)
[2017-05-11] MEDS: guaiFENesin/D-METHORPHAN HB 10 ML UNIT-DOSE CUPS PO PRN (05:35)
--- NOTE | 2017-05-11 09:01 | DS ---
[facility] Detox Discharge Summary Admission Date: 05/07/17 Discharge Date: 05/11/17 - History Present History: Cocaine Dependence, Opioid Dependence - Physical Exam Results Vital Signs: Vital Signs Temperature 98.2 F 05/11/17 07:30 Pulse Rate 96 H 05/11/17 07:30 Respiratory Rate 05/11/17 06:00 Blood Pressure 105/65 05/11/17 06:00 O2 Sat by Pulse Oximetry (%) - Treatment Hospital Course: Detox Protocol Followed, Detoxed Safely, Responded well, Discharged Condition Good, Rehab Referral Accepted - Medication Discharge Medications: Ambulatory Orders Abacavir/Dolutegravir/Lamivudi [Triumeq Tablet] 1 each PO DAILY 01/09/17 Albuterol Sulfate Inhaler - [Ventolin Hfa Inhaler -] 2 inh PO Q4H PRN 01/09/17 - Diagnosis (1) Depression Current Visit: Yes Status: Acute (2) Alcohol dependence with uncomplicated withdrawal Current Visit: Yes Status: Chronic (3) Asthma Current Visit: Yes Status: Chronic Qualifiers: Asthma severity: mild intermittent (4) HIV (human immunodeficiency virus infection) Current Visit: Yes Status: Chronic (5) Opioid dependence Current Visit: Yes Status: Chronic Qualifiers: Substance use status: uncomplicated Qualified Code(s): F11.20 - Opioid dependence, uncomplicated (6) Substance induced mood disorder Current Visit: Yes Status: Chronic (7) Weight loss Current Visit: No Status: Acute (8) Cocaine dependence Current Visit: Yes Status: Chronic Qualifiers: Substance use status: uncomplicated Qualified Code(s): F14.20 - Cocaine dependence, uncomplicated (9) Nicotine dependence Current Visit: Yes Status: Chronic Qualifiers: Nicotine product type: cigarettes Substance use status: uncomplicated Qualified Code(s): F17.210 - Nicotine dependence, cigarettes, uncomplicated (10) Opioid dependence with withdrawal Current Visit: Yes Status: Chronic - AMA Did Patient Leave Against Medical Advice: No
[2017-05-11 09:20] VITALS: BP 94/66; PULSE 104; TEMP 97.9
[2017-05-11] MEDS ORDERED: FLUTICASONE PROP 0.05% 16 GM NASAL SPRAY NS SCH (10:00)
== END 2017-05-11 11:13 | disposition home or self-care (01) | DRG 773 ==
LOC: YASAS 11:02 → Y6N 13:01
PROVIDERS: ADMIT Internal Medicine; ATTEND Internal Medicine
PROC: HZ2ZZZZ Detoxification Services for Substance Abuse Treatment (ICD-10-PCS; principal; 2017-05-07)
DX: F11.23 Opioid dependence with withdrawal (principal); F10.230 Alcohol dependence with withdrawal, uncomplicated; F14.20 Cocaine dependence, uncomplicated; F17.210 Nicotine dependence, cigarettes, uncomplicated; F19.24 Other psychoactive substance dependence with psychoactive substance-induced mood disorder; F32.9 Major depressive disorder, single episode, unspecified; Z21 Asymptomatic human immunodeficiency virus [HIV] infection status; J45.909 Unspecified asthma, uncomplicated; R09.81 Nasal congestion; B18.2 Chronic viral hepatitis C; Z88.8 Allergy status to other drugs, medicaments and biological substances; Z87.898 Personal history of other specified conditions
CPT/HCPCS: 36415; 80053; 81003; 85027; 86593; 93005; 93010

== ENCOUNTER 2017-07-06 09:34 | Inpatient (IN) | payer OTHER ==
[2017-07-06 10:10] VITALS: BMI 23.3
--- NOTE | 2017-07-06 11:57 | HP ---
COWS - Scale Resting Pulse: 1= [place] 81-100 Sweatin= Chills/Flushing Restless Observation: 1= Difficult to Sit Still Pupil Size: 1= Pupils >than Normal Bone or Joint Aches: 1= Mild Discomfort Runny Nose/ Eye Tearin= Runny Nose/Eyes GI Upset > 30mins: 2= Nausea/Diarrhea Tremor Observation: 2= Slight Tremor Visible Yawning Observation: 1= 1-2x During Session Anxiety or Irritability: 2=Irritable/Anxious Goose Flesh Skin: 3=Piloerection COWS Score: 17 CIWA Score - CIWA Score Nausea/Vomitin Muscle Tremors: 3 Anxiety: 3 Agitation: 3 Paroxysmal Sweats: 3 Orientation: 0-Oriented Tacttile Disturbances: 1-Very Mild Itch/Numbness Auditory Disturbances: 0-None Visual Disturbances: 0-None Headache: 1-Very Mild CIWA-Ar Total Score: 17 Admission ROS BHS - HPI Chief Complaint: alcohol and heroin withdrawal sx Allergies/Adverse Reactions: Allergies Allergy/AdvReac Type Severity Reaction Status Date / Time olanzapine [From Zyprexa] Allergy Severe Difficulty Verified 07/06/17 10:44 Breathing quetiapine fumarate AdvReac Intermediate Verified 07/06/17 10:44 [From Seroquel] History of Present Illness: 56 yo m with severe opioid use diorder, multiple inpatient detox fication from heroin, drugs of choice prior to admission were heorin and cocaine idu but recently ahs aded beer more days tehen not to his regimen. no h/o seiures, dts or si. thirsty, dehydratid, PMHX hiv+ on medications, taking but does not have them with him, asthma, allergies Exam Limitations: No Limitations - Ebola screening Have you traveled outside of the country in the last 21 days: No Have you had contact with anyone from an Ebola affected area: No Have you been sick,other than usual withdrawal symptoms: No Do you have a fever: No - Review of Systems Constitutional: Diaphoresis, Night Sweats, Changes in sleep, Unintentional Wgt. Loss EENT: reports: Tearing, Nose Congestion Respiratory: reports: Cough (mucous), SOB with Exertion, Wheezing (asthma) Cardiac: reports: No Symptoms Reported GI: reports: Diarrhea, Nausea, Poor Appetite, Poor Fluid Intake, Vomiting, Indigestion, Abdominal cramping : reports: No Symptoms Reported Musculoskeletal: reports: Joint Pain, Muscle Pain Integumentary: reports: Flushing, Sweating Neuro: reports: Headache, Numbness, Tingling, Tremors Endocrine: reports: Increased Thirst Hematology: reports: No Symptoms Reported Psychiatric: reports: Judgement Intact, Mood/Affect Appropiate, Orientated x3, Anxious, Depressed Other Systems: Reviewed and Negative Patient History - Patient Medical History Hx Anemia: No Hx Asthma: Yes Hx Chronic Obstructive Pulmonary Disease (COPD): No Hx Cancer: No Hx Cardiac Disorders: No Hx Congestive Heart Failure: No Hx Hypertension: No Hx Hypercholesterolemia: No Hx Pacemaker: No HX Cerebrovascular Accident: No Hx Seizures: No Hx Dementia: No Hx Diabetes: No Hx Gastrointestinal Disorders: No Hx Liver Disease: No Hx Genitourinary Disorders: No Hx Sexually Transmitted Disorders: No Hx Renal Disease (ESRD): No Hx Thyroid Disease: No Hx Human Immunodeficiency Virus (HIV): Yes (SINCE 1982, on HAART) Hx Hepatitis C: Yes (cleared with treatment) Hx Depression: Yes Hx Suicide Attempt: No (no si at this tie) Hx Bipolar Disorder: No Hx Schizophrenia: No - Patient Surgical History Past Surgical History: No Hx Neurologic Surgery: No Hx Cataract Extraction: No Hx Cardiac Surgery: No Hx Lung Surgery: No Hx Breast Surgery: No Hx Breast Biopsy: No Hx Abdominal Surgery: No Hx Appendectomy: No Hx Cholecystectomy: No Hx Genitourinary Surgery: No Hx Orthopedic Surgery: No Hx Hysterectomy: No Anesthesia Reaction: No (NA) - PPD History Previous Implant?: Yes Date: 01/11/17 Results: 0 MM - Reproductive History Patient is a Female of Child Bearing Age (11 -55 yrs old): No Patient : No - Smoking Cessation Smoking history: Current every day smoker Have you smoked in the past 12 months: Yes Aproximately how many cigarettes per day: 10 Cigars Per Day: 0 Hx Chewing Tobacco Use: No Initiated information on smoking cessation: Yes 'Breaking Loose' booklet given: 07/06/17 - Substance & Tx. History Hx Alcohol Use: Yes Hx Substance Use: Yes Substance Use Type: Alcohol, Cocaine, Heroin, Opiates Hx Substance Use Treatment: Yes (detox and rehab at [facility] in past) - Substances Abused Cocaine Route: Smoking Frequency: 1-2 times per week Amount used: $150 Age of first use: 11 Date of Last Use: 07/06/17 Heroin Route: Injection Frequency: Daily Amount used: 3 BAGS Age of first use: 8 Date of Last Use: 07/04/17 Alcohol Route: Oral Frequency: 1-2 times per week Amount used: 6 PACKS Age of first use: 15 Date of Last Use: 07/03/17 Family Disease History - Family Disease History Family Disease History: Other: Father (ALCOHOL,), Mother (ALCOHOL, DESEASED) Admission Physical Exam [facility] - Vital Signs Vital Signs: Vital Signs - 24 hr 07/06/17 10:08 Temperature 97 F L Pulse Rate 86 Respiratory 20 Rate Blood Pressure 116/77 - Physical General Appearance: Yes: Appropriately Dressed, Disheveled, Moderate Distress, Thin, Tremorous, Irritable, Sweating, Anxious HEENTM: Yes: EOMI, Hearing grossly Normal, Normocephalic, Normal Voice, DANIEL, Pharynx Normal, Nasal Congestion, Rhinorrhea Respiratory: Yes: Within Normal Limits, Chest Non-Tender, Lungs Clear, Normal Breath Sounds, No Respiratory Distress, No Accessory Muscle Use Neck: Yes: Within Normal Limits, No masses,lesions,Nodules, Supple, Trachea in good position Breast: Yes: Breast Exam Deferred Cardiology: Yes: Within Normal Limits, Regular Rhythm, Regular Rate, S1, S2 Abdominal: Yes: Within Normal Limits, Normal Bowel Sounds, Non Tender, Flat, Soft, Increased Bowel Sounds Genitourinary: Yes: Within Normal Limits Back: Yes: Normal Inspection, Muscle Spasm Musculoskeletal: Yes: full range of Motion, Gait Steady, Pelvis Stable, Back pain, Muscle Pain Extremities: Yes: Normal Capillary Refill, Normal Inspection, Normal Range of Motion, Non-Tender Neurological: Yes: tech writer II-XII NML intact, Fully Oriented, Alert, Motor Strength 5/5, Normal Response, Depressed Affect Integumentary: Yes: Normal Color, Warm, Diaphoresis, Moist, Track Hicks Lymphatic: Yes: Within Normal Limits - Addiitonal Findings: withdrawal sx - Diagnostic (1) Depression Current Visit: No Status: Acute (2) Weight loss Current Visit: No Status: Acute (3) Alcohol dependence with uncomplicated withdrawal Current Visit: No Status: Chronic (4) Asthma Current Visit: No Status: Chronic Qualifiers: Asthma severity: mild intermittent (5) Cocaine dependence Current Visit: No Status: Chronic Qualifiers: Substance use status: uncomplicated Qualified Code(s): F14.20 - Cocaine dependence, uncomplicated (6) HIV (human immunodeficiency virus infection) Current Visit: No Status: Chronic (7) Nicotine dependence Current Visit: No Status: Chronic Qualifiers: Nicotine product type: cigarettes Substance use status: uncomplicated Qualified Code(s): F17.210 - Nicotine dependence, cigarettes, uncomplicated (8) Opioid dependence with withdrawal Current Visit: No Status: Chronic (9) Substance induced mood disorder Current Visit: No Status: Chronic Cleared for Admission S - Detox or Rehab [facility] Level of Care: Medically Managed Detox Regimen/Protocol: Methadone/Valium, Valium S Breath Alcohol Content Breath Alcohol Content: 0 Urine Drug Screen - Results Drug Screen Negative: No Urine Drug Screen Results: ANI-Cocaine
[2017-07-06] MEDS ORDERED: MAGNESIUM CITRATE 300 ML BOTTLE PO PRN (11:59)
[2017-07-06] MEDS ORDERED: P-EPHED 60MG/TRIPROLIDI 2.5MG TABLET PO PRN (11:59)
[2017-07-06] MEDS ORDERED: NICOTINE POLACRILEX 2 MG GUM BUC PRN (11:59)
[2017-07-06] MEDS ORDERED: MAG HYDROX/AL HYDROX/SIMETH 30 ML UNIT-DOSE CUP PO PRN (11:59)
[2017-07-06] MEDS ORDERED: guaiFENesin/D-METHORPHAN HB 10 ML UNIT-DOSE CUPS PO PRN (11:59)
[2017-07-06] MEDS ORDERED: ACETAMINOPHEN 325 MG TABLET (FP) PO PRN (11:59)
[2017-07-06] MEDS ORDERED: MENTHOL/PHENOL 1 EACH UD MM PRN (11:59)
[2017-07-06] MEDS ORDERED: LOPERAMIDE HCL 2 MG CAPSULE PO PRN (11:59)
[2017-07-06] MEDS ORDERED: IBUPROFEN 400 MG TABLET (FP) PO PRN (11:59)
[2017-07-06] MEDS ORDERED: hydrOXYzine PAMOATE 50 MG CAPSULE (FP) PO PRN (11:59)
[2017-07-06] MEDS ORDERED: MAGNESIUM HYDROX 2400MG/30ML ORAL SUSPENSION 30 ML CUP PO PRN (11:59)
[2017-07-06] MEDS ORDERED: ALBUTEROL SO4 18 GM HFA INHALER IH PRN (12:01)
[2017-07-06] MEDS ORDERED: diazePAM 5 MG TABLET PO ONE (12:50)
[2017-07-06] MEDS ORDERED: METHADONE HCL 10 MG TABLET (FOR DETOX USE ONLY) PO ONE ×2 (13:00→23:00)
[2017-07-06] MEDS: NICOTINE 21 MG/24 HOURS TOPICAL PATCH TD SCH (13:46)
[2017-07-06] MEDS: diazePAM 5 MG TABLET PO SCH ×2 (13:47→22:45)
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
[2017-07-06] MEDS: ABACAVIR/DOLUTEGRAVIR/LAMIVUDI (TRIUMEQ) TABLET -NF PO SCH (15:29)
--- NOTE | 2017-07-06 16:43 | EKG ---
Test Reason : Blood Pressure : / mmHG Vent. Rate : 080 BPM Atrial Rate : 080 BPM P-R Int : 150 ms QRS Dur : 076 ms QT Int : 380 ms P-R-T Axes : 054 061 036 degrees QTc Int : 438 ms NORMAL SINUS RHYTHM NORMAL ECG WHEN COMPARED WITH ECG OF 07-MAY-2017 14:40, NO SIGNIFICANT CHANGE WAS FOUND Confirmed by CECE HUDDLESTON MD ([id number]) on 07/06/2017 4:43:14 PM Referred By: Confirmed By:CECE HUDDLESTON MD
[2017-07-06 17:23] LABS: URINE APPEARANCE CLEAR; URINE BILIRUBIN NEGATIVE (NEGATIVE); URINE BLOOD NEGATIVE (NEGATIVE); URINE COLOR YELLOW; URINE GLUCOSE (UA) NEGATIVE (NEGATIVE); URINE KETONE 1+ (NEGATIVE); URINE LEUK ESTERASE NEGATIVE (NEGATIVE); URINE NITRITE NEGATIVE (NEGATIVE); URINE PROTEIN NEGATIVE (NEGATIVE)
[2017-07-06] MEDS: diazePAM 5 MG TABLET PO PRN (17:47)
[2017-07-06] MEDS: SERTRALINE HCL 25 MG TABLET (FP) PO SCH (22:45)
[2017-07-06] MEDS: THIAMINE HCL 100 MG TABLET (FP) PO SCH (22:45)
[2017-07-07] MEDS: diazePAM 5 MG TABLET PO SCH ×4 (06:03→22:19)
[2017-07-07] MEDS ORDERED: METHADONE HCL 10 MG TABLET (FOR DETOX USE ONLY) PO SCH (10:00)
[2017-07-07 10:05] LABS: HEMOGLOBIN 13.8 GM/dL (11.7-16.9); MCH 30.8 pg (25.7-33.7); MCHC 33.6 g/dl (32.0-35.9); MEAN CELL VOLUME 91.6 fl (80-96); MEAN PLT VOLUME 7.4 fl (7.5-11.1); PLATELET COUNT 246 K/MM3 (134-434); RBC 4.47 M/mm3 (4.00-5.60); RDW 14.5 % (11.9-15.9); WHITE BLOOD COUNT 3.3 K/mm3 (4.0-10.0)
[2017-07-07 10:26] LABS: ALBUMIN 4.1 g/dl (3.4-5.0); ANION GAP 7 (8-16); CHLORIDE 108 mmol/L (98-107); CO2 27 mmol/L (21-32); GLUCOSE,RANDOM 70 mg/dL (74-106); POTASSIUM 4.7 mmol/L (3.5-5.1); SODIUM 142 mmol/L (136-145)
[2017-07-07 10:31] LABS: ALK PHOS 70 U/L (45-117); BILIRUBIN,TOTAL 0.7 mg/dL (0.2-1.0); BLOOD UREA NITROGEN 19 mg/dL (7-18); CREATININE 1.1 mg/dL (0.7-1.3); SGOT/AST 22 U/L (15-37); SGPT/ALT 20 U/L (12-78); TOT PROT 8.1 g/dl (6.4-8.2)
[2017-07-07] MEDS: PRENATAL VITAMINS W/ FOLIC ACID TABLET (FP) PO SCH (10:54)
[2017-07-07] MEDS: ABACAVIR/DOLUTEGRAVIR/LAMIVUDI (TRIUMEQ) TABLET -NF PO SCH (10:54)
[2017-07-07] MEDS: NICOTINE 21 MG/24 HOURS TOPICAL PATCH TD SCH (10:54)
[2017-07-07] MEDS: diazePAM 5 MG TABLET PO PRN (10:54)
[2017-07-07] MEDS ORDERED: diphenhydrAMINE HCL 50 MG CAPSULE PO PRN (10:59)
--- NOTE | 2017-07-07 15:57 | PN ---
[facility] CIWA - CIWA Score Nausea/Vomitin-No Nausea/No Vomiting Muscle Tremors: 2 Anxiety: 4-Mod. Anxious/Guarded Agitation: 3 Paroxysmal Sweats: 3 Orientation: 0-Oriented Tacttile Disturbances: 3-Moderate Itch/Numb/Burn Auditory Disturbances: 0-None Visual Disturbances: 2-Mild Sensitivity Headache: 0-None Present CIWA-Ar Total Score: 17 S COWS - Scale Resting Pulse: 1= [place] 81-100 Sweatin= Chills/Flushing Restless Observation: 1= Difficult to Sit Still Pupil Size: 0= Normal to Room Light Bone or Joint Aches: 2= Severe Diffuse Aches Runny Nose/ Eye Tearin= None GI Upset > 30mins: 2= Nausea/Diarrhea Tremor Observation of Outstretched Hands: 0= None Yawning Observation: 1= 1-2x During Session Anxiety or Irritability: 2=Irritable/Anxious Goose Flesh Skin: 3=Piloerection COWS Score: 13 S Progress Note (SOAP) Subjective: Anxious, Fatigue, Body Aches, Sweating, Diarrhea. Objective: PATIENT A & O X 3, OBSERVED AMBULATING ON UNIT. NO ACUTE DISTRESS. 07/07/17 15:55 Vital Signs Temperature 98.6 F 07/07/17 14:23 Pulse Rate 86 07/07/17 14:23 Respiratory Rate 18 07/07/17 14:23 Blood Pressure 121/74 07/07/17 14:23 O2 Sat by Pulse Oximetry (%) Laboratory Tests 07/06/17 07/07/17 07/07/17 14:00 06:00 06:00 WBC 3.3 L D RBC 4.47 Hgb 13.8 Hct 41.0 MCV 91.6 MCH 30.8 MCHC 33.6 RDW 14.5 Plt Count 246 MPV 7.4 L Sodium 142 Potassium 4.7 D Chloride 108 H Carbon Dioxide 27 Anion Gap 7 L BUN 19 H Creatinine 1.1 Creat Clearance w eGFR > 60 Random Glucose 70 L D Calcium 9.0 Total Bilirubin 0.7 D AST 22 D ALT 20 D Alkaline Phosphatase 70 Total Protein 8.1 Albumin 4.1 D Urine Color Yellow Urine Appearance Clear Urine pH 5.0 Ur Specific [place] 1.027 Urine Protein Negative Urine Glucose (UA) Negative Urine Ketones 1+ H Urine Blood Negative Urine Nitrite Negative Urine Bilirubin Negative Urine Urobilinogen 2.0 Ur Leukocyte Esterase Negative RPR Titer 07/07/17 06:00 WBC RBC Hgb Hct MCV MCH MCHC RDW Plt Count MPV Sodium Potassium Chloride Carbon Dioxide Anion Gap BUN Creatinine Creat Clearance w eGFR Random Glucose Calcium Total Bilirubin AST ALT Alkaline Phosphatase Total Protein Albumin Urine Color Urine Appearance Urine pH Ur Specific [place] Urine Protein Urine Glucose (UA) Urine Ketones Urine Blood Urine Nitrite Urine Bilirubin Urine Urobilinogen Ur Leukocyte Esterase RPR Titer Nonreactive LABS NOTED. Assessment: 07/07/17 15:55 WITHDRAWAL SYMPTOMS. Plan: CONTINUE DETOX. INCREASE DAILY PO FLUID INTAKE.
[2017-07-07] MEDS: SERTRALINE HCL 25 MG TABLET (FP) PO SCH (22:19)
[2017-07-07] MEDS: THIAMINE HCL 100 MG TABLET (FP) PO SCH (22:19)
[2017-07-08] MEDS: diazePAM 5 MG TABLET PO PRN ×2 (06:02→17:19)
[2017-07-08] MEDS ORDERED: METHADONE HCL 5 MG TABLET (FOR DETOX USE ONLY) PO SCH (10:00)
[2017-07-08] MEDS: NICOTINE 21 MG/24 HOURS TOPICAL PATCH TD SCH (10:39)
[2017-07-08] MEDS: ABACAVIR/DOLUTEGRAVIR/LAMIVUDI (TRIUMEQ) TABLET -NF PO SCH (10:39)
[2017-07-08] MEDS: diazePAM 5 MG TABLET PO SCH ×2 (10:39→22:42)
[2017-07-08] MEDS: PRENATAL VITAMINS W/ FOLIC ACID TABLET (FP) PO SCH (10:39)
--- NOTE | 2017-07-08 18:06 | PN ---
[facility] CIWA - CIWA Score Nausea/Vomitin-No Nausea/No Vomiting Muscle Tremors: None Anxiety: 4-Mod. Anxious/Guarded Agitation: 3 Paroxysmal Sweats: 3 Orientation: 0-Oriented Tacttile Disturbances: 2-Mild Itch/Numbness/Burn Auditory Disturbances: 1-Very Mild Visual Disturbances: 2-Mild Sensitivity Headache: 0-None Present CIWA-Ar Total Score: 15 BHS COWS - Scale Resting Pulse: 1= [place] 81-100 Sweatin= Chills/Flushing Restless Observation: 1= Difficult to Sit Still Pupil Size: 0= Normal to Room Light Bone or Joint Aches: 2= Severe Diffuse Aches Runny Nose/ Eye Tearin= None GI Upset > 30mins: 2= Nausea/Diarrhea Tremor Observation of Outstretched Hands: 0= None Yawning Observation: 1= 1-2x During Session Anxiety or Irritability: 2=Irritable/Anxious Goose Flesh Skin: 3=Piloerection COWS Score: 13 S Progress Note (SOAP) Subjective: Diarrhea, Body Aches, Sweating. Objective: PATIENT A & O X 3, OBSERVED AMBULATING ON UNIT. NO ACUTE DISTRESS. 07/08/17 18:06 Vital Signs Temperature 97.0 F L 07/08/17 15:08 Pulse Rate 82 07/08/17 15:08 Respiratory Rate 18 07/08/17 15:08 Blood Pressure 120/78 07/08/17 15:08 O2 Sat by Pulse Oximetry (%) Laboratory Tests 07/06/17 07/07/17 07/07/17 14:00 06:00 06:00 WBC 3.3 L D RBC 4.47 Hgb 13.8 Hct 41.0 MCV 91.6 MCH 30.8 MCHC 33.6 RDW 14.5 Plt Count 246 MPV 7.4 L Sodium 142 Potassium 4.7 D Chloride 108 H Carbon Dioxide 27 Anion Gap 7 L BUN 19 H Creatinine 1.1 Creat Clearance w eGFR > 60 Random Glucose 70 L D Calcium 9.0 Total Bilirubin 0.7 D AST 22 D ALT 20 D Alkaline Phosphatase 70 Total Protein 8.1 Albumin 4.1 D Urine Color Yellow Urine Appearance Clear Urine pH 5.0 Ur Specific [place] 1.027 Urine Protein Negative Urine Glucose (UA) Negative Urine Ketones 1+ H Urine Blood Negative Urine Nitrite Negative Urine Bilirubin Negative Urine Urobilinogen 2.0 Ur Leukocyte Esterase Negative RPR Titer 07/07/17 06:00 WBC RBC Hgb Hct MCV MCH MCHC RDW Plt Count MPV Sodium Potassium Chloride Carbon Dioxide Anion Gap BUN Creatinine Creat Clearance w eGFR Random Glucose Calcium Total Bilirubin AST ALT Alkaline Phosphatase Total Protein Albumin Urine Color Urine Appearance Urine pH Ur Specific [place] Urine Protein Urine Glucose (UA) Urine Ketones Urine Blood Urine Nitrite Urine Bilirubin Urine Urobilinogen Ur Leukocyte Esterase RPR Titer Nonreactive LABS NOTED. Assessment: 07/08/17 18:06 WITHDRAWAL SYMPTOMS. Plan: CONTINUE DETOX. INCREASE DAILY PO FLUID INTAKE.
[2017-07-08] MEDS: THIAMINE HCL 100 MG TABLET (FP) PO SCH (22:42)
[2017-07-08] MEDS: SERTRALINE HCL 25 MG TABLET (FP) PO SCH (22:42)
[2017-07-09] MEDS: PRENATAL VITAMINS W/ FOLIC ACID TABLET (FP) PO SCH (10:23)
[2017-07-09] MEDS: diazePAM 5 MG TABLET PO SCH ×2 (10:23→22:05)
[2017-07-09] MEDS: NICOTINE 21 MG/24 HOURS TOPICAL PATCH TD SCH (10:23)
[2017-07-09] MEDS: ABACAVIR/DOLUTEGRAVIR/LAMIVUDI (TRIUMEQ) TABLET -NF PO SCH (10:24)
--- NOTE | 2017-07-09 16:03 | PN ---
[facility]HS Progress Note (SOAP) Subjective: Back pain, left calf pain/spasm, sweating, interrupted sleep Objective: 07/09/17 16:01 Last Vital Signs Temp Pulse Resp BP Pulse Ox 98.6 F 70 18 133/72 07/09/17 14:44 07/09/17 14:44 07/09/17 14:44 07/09/17 14:44 Laboratory Tests 07/06/17 07/07/17 07/07/17 14:00 06:00 06:00 WBC 3.3 L D RBC 4.47 Hgb 13.8 Hct 41.0 MCV 91.6 MCH 30.8 MCHC 33.6 RDW 14.5 Plt Count 246 MPV 7.4 L Sodium 142 Potassium 4.7 D Chloride 108 H Carbon Dioxide 27 Anion Gap 7 L BUN 19 H Creatinine 1.1 Creat Clearance w eGFR > 60 Random Glucose 70 L D Calcium 9.0 Total Bilirubin 0.7 D AST 22 D ALT 20 D Alkaline Phosphatase 70 Total Protein 8.1 Albumin 4.1 D Urine Color Yellow Urine Appearance Clear Urine pH 5.0 Ur Specific [place] 1.027 Urine Protein Negative Urine Glucose (UA) Negative Urine Ketones 1+ H Urine Blood Negative Urine Nitrite Negative Urine Bilirubin Negative Urine Urobilinogen 2.0 Ur Leukocyte Esterase Negative RPR Titer 07/07/17 06:00 WBC RBC Hgb Hct MCV MCH MCHC RDW Plt Count MPV Sodium Potassium Chloride Carbon Dioxide Anion Gap BUN Creatinine Creat Clearance w eGFR Random Glucose Calcium Total Bilirubin AST ALT Alkaline Phosphatase Total Protein Albumin Urine Color Urine Appearance Urine pH Ur Specific [place] Urine Protein Urine Glucose (UA) Urine Ketones Urine Blood Urine Nitrite Urine Bilirubin Urine Urobilinogen Ur Leukocyte Esterase RPR Titer Nonreactive Labs reviewed Assessment: 07/09/17 16:02 Withdrawal symptoms Plan: Continue detox Encouraged increased PO (water) hydration
[2017-07-09] MEDS: THIAMINE HCL 100 MG TABLET (FP) PO SCH (22:05)
[2017-07-09] MEDS: SERTRALINE HCL 25 MG TABLET (FP) PO SCH (22:48)
[2017-07-10 09:22] VITALS: BP 128/73; PULSE 62; TEMP 95.6
[2017-07-10] MEDS ORDERED: METHADONE HCL 10 MG TABLET (FOR DETOX USE ONLY) PO SCH (10:00)
[2017-07-10] MEDS ORDERED: diazePAM 5 MG TABLET PO SCH (10:00)
[2017-07-10] MEDS: NICOTINE 21 MG/24 HOURS TOPICAL PATCH TD SCH (10:29)
[2017-07-10] MEDS: PRENATAL VITAMINS W/ FOLIC ACID TABLET (FP) PO SCH (10:29)
[2017-07-10] MEDS: ABACAVIR/DOLUTEGRAVIR/LAMIVUDI (TRIUMEQ) TABLET -NF PO SCH (10:29)
--- NOTE | 2017-07-10 12:52 | PN ---
[facility] Progress Note (SOAP) Subjective: Going to [facility] rehab Objective: 07/10/17 12:51 A & O x 3, no acute distress Vital Signs Temperature 95.6 F L 07/10/17 09:21 Pulse Rate 62 07/10/17 09:21 Respiratory Rate 18 07/10/17 09:21 Blood Pressure 128/73 07/10/17 09:21 O2 Sat by Pulse Oximetry (%) Assessment: 07/10/17 12:51 Detox completed Plan: For transfer to rehab
--- NOTE | 2017-07-10 12:56 | DS ---
[facility] Detox Discharge Summary Admission Date: 07/06/17 Discharge Date: 07/10/17 - History Additional Comments: pt being transferred to inhouse rehab - Physical Exam Results Vital Signs: Vital Signs Temperature 95.6 F L 07/10/17 09:21 Pulse Rate 62 07/10/17 09:21 Respiratory Rate 18 07/10/17 09:21 Blood Pressure 128/73 07/10/17 09:21 O2 Sat by Pulse Oximetry (%) Pertinent Admission Physical Exam Findings: withdrawal sx - Treatment Hospital Course: Detox Protocol Followed, Detoxed Safely, Responded well, Discharged Condition Good, Rehab Referral Accepted Patient has Accepted a Rehab Referral to: [facility] rehab - Medication Discharge Medications: Ambulatory Orders Abacavir/Dolutegravir/Lamivudi [Triumeq Tablet] 1 each PO DAILY 01/09/17 Albuterol Sulfate Inhaler - [Ventolin Hfa Inhaler -] 2 inh PO Q4H PRN 01/09/17 Sertraline HCl [Zoloft] 25 mg PO DAILY 07/06/17 - Diagnosis (1) Opioid dependence with withdrawal Current Visit: Yes Status: Acute (2) Alcohol dependence with uncomplicated withdrawal Current Visit: Yes Status: Acute (3) Depression Current Visit: Yes Status: Chronic Qualifiers: Depression Type: unspecified Qualified Code(s): F32.9 - Major depressive disorder, single episode, unspecified (4) Hepatitis C Current Visit: Yes Status: Chronic Qualifiers: Viral hepatitis chronicity: unspecified Hepatic coma status: without hepatic coma Qualified Code(s): B19.20 - Unspecified viral hepatitis C without hepatic coma (5) Substance induced mood disorder Current Visit: Yes Status: Chronic (6) Weight loss Current Visit: Yes Status: Chronic (7) Asthma Current Visit: Yes Status: Chronic Qualifiers: Asthma severity: mild Asthma persistence: intermittent Asthma complication type: uncomplicated Qualified Code(s): J45.20 - Mild intermittent asthma, uncomplicated (8) Cocaine dependence Current Visit: Yes Status: Chronic Qualifiers: Substance use status: uncomplicated Qualified Code(s): F14.20 - Cocaine dependence, uncomplicated (9) Nicotine dependence Current Visit: Yes Status: Chronic Qualifiers: Nicotine product type: cigarettes Substance use status: uncomplicated Qualified Code(s): F17.210 - Nicotine dependence, cigarettes, uncomplicated (10) HIV (human immunodeficiency virus infection) Current Visit: Yes Status: Chronic (11) MDD (major depressive disorder) Current Visit: Yes Status: Chronic - AMA Did Patient Leave Against Medical Advice: No
[2017-07-11] MEDS ORDERED: METHADONE HCL 5 MG TABLET (FOR DETOX USE ONLY) PO SCH (06:00)
== END 2017-07-10 14:39 | disposition other institution (70) | DRG 773 ==
LOC: YASAS 09:34 → Y3N 12:23
PROVIDERS: ADMIT Internal Medicine; ATTEND Internal Medicine
PROC: HZ2ZZZZ Detoxification Services for Substance Abuse Treatment (ICD-10-PCS; principal; 2017-07-06)
DX: F11.23 Opioid dependence with withdrawal (principal); F10.230 Alcohol dependence with withdrawal, uncomplicated; F14.20 Cocaine dependence, uncomplicated; F17.210 Nicotine dependence, cigarettes, uncomplicated; F33.9 Major depressive disorder, recurrent, unspecified; F32.9 Major depressive disorder, single episode, unspecified; F19.24 Other psychoactive substance dependence with psychoactive substance-induced mood disorder; B18.2 Chronic viral hepatitis C; J45.20 Mild intermittent asthma, uncomplicated; Z21 Asymptomatic human immunodeficiency virus [HIV] infection status; Z68.23 Body mass index [BMI] 23.0-23.9, adult; R63.4 Abnormal weight loss
CPT/HCPCS: 36415; 80053; 81003; 85027; 86593; 93005; 93010

== ENCOUNTER 2017-07-10 14:45 | Inpatient (IN) | payer OTHER ==
[2017-07-10] MEDS ORDERED: ALBUTEROL SO4 18 GM HFA INHALER IH PRN (15:06)
[2017-07-10] MEDS ORDERED: MAG HYDROX/AL HYDROX/SIMETH 30 ML UNIT-DOSE CUP PO PRN (15:06)
[2017-07-10] MEDS ORDERED: P-EPHED 60MG/TRIPROLIDI 2.5MG TABLET PO PRN (15:06)
[2017-07-10] MEDS ORDERED: NICOTINE POLACRILEX 2 MG GUM BUC PRN (15:06)
[2017-07-10] MEDS ORDERED: IBUPROFEN 400 MG TABLET (FP) PO PRN (15:06)
[2017-07-10] MEDS ORDERED: LOPERAMIDE HCL 2 MG CAPSULE PO PRN (15:06)
[2017-07-10] MEDS ORDERED: guaiFENesin/D-METHORPHAN HB 10 ML UNIT-DOSE CUPS PO PRN (15:06)
[2017-07-10] MEDS ORDERED: MAGNESIUM CITRATE 300 ML BOTTLE PO PRN (15:06)
[2017-07-10] MEDS ORDERED: MAGNESIUM HYDROX 2400MG/30ML ORAL SUSPENSION 30 ML CUP PO PRN (15:06)
[2017-07-10] MEDS ORDERED: MENTHOL/PHENOL 1 EACH UD MM PRN (15:06)
[2017-07-10] MEDS ORDERED: ALBUTEROL SO4 2.5/IPRATROPIUM 0.5 INH SOL 3 ML VIAL.NEB. NEB PRN (15:07)
--- NOTE | 2017-07-10 15:07 | HP ---
PAWAN [facility]LL Rehab Assess/Revision - Admission History Admitted to Rehab from: [facility] Date of Admission to Rehab: 07/10/17 - Findings Detox History & Physical reviewed: Yes Concur with findings: Yes Inpatient Rehab Admission - Initial Determination Are CD services needed?: Yes Free of communicable disease: Yes Not in need of hospitalization: Yes - Rehab Admission Criteria Previous failed treatment: Yes Poor recovery environment: Yes Comorbidities: Yes Lacks judgement: Yes Patient is meeting Inpatient Rehab admission criteria:: Yes
[2017-07-10] MEDS: THIAMINE HCL 100 MG TABLET (FP) PO SCH (21:20)
[2017-07-10] MEDS: hydrOXYzine PAMOATE 50 MG CAPSULE (FP) PO PRN (21:21)
[2017-07-11] MEDS: ABACAVIR/DOLUTEGRAVIR/LAMIVUDI (TRIUMEQ) TABLET -NF PO SCH (10:02)
[2017-07-11] MEDS: PRENATAL VITAMINS W/ FOLIC ACID TABLET (FP) PO SCH (10:02)
[2017-07-11] MEDS: NICOTINE 14 MG/24 HOURS TOPICAL PATCH TD SCH (10:02)
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
[2017-07-11] MEDS: THIAMINE HCL 100 MG TABLET (FP) PO SCH (21:09)
[2017-07-11] MEDS: hydrOXYzine PAMOATE 50 MG CAPSULE (FP) PO PRN (21:10)
[2017-07-12] MEDS: ABACAVIR/DOLUTEGRAVIR/LAMIVUDI (TRIUMEQ) TABLET -NF PO SCH (09:56)
[2017-07-12] MEDS: NICOTINE 14 MG/24 HOURS TOPICAL PATCH TD SCH (09:56)
[2017-07-12] MEDS: PRENATAL VITAMINS W/ FOLIC ACID TABLET (FP) PO SCH (09:56)
[2017-07-12] MEDS ORDERED: SERTRALINE HCL 25 MG TABLET (FP) PO SCH (10:00)
[2017-07-12] MEDS: THIAMINE HCL 100 MG TABLET (FP) PO SCH (21:06)
[2017-07-12] MEDS: hydrOXYzine PAMOATE 50 MG CAPSULE (FP) PO PRN (21:08)
[2017-07-13] MEDS: PRENATAL VITAMINS W/ FOLIC ACID TABLET (FP) PO SCH (06:20)
[2017-07-13] MEDS: SERTRALINE HCL 25 MG TABLET (FP) PO SCH (06:20)
[2017-07-13] MEDS: ABACAVIR/DOLUTEGRAVIR/LAMIVUDI (TRIUMEQ) TABLET -NF PO SCH (06:21)
[2017-07-13] MEDS: NICOTINE 14 MG/24 HOURS TOPICAL PATCH TD SCH (10:54)
[2017-07-13] MEDS: THIAMINE HCL 100 MG TABLET (FP) PO SCH (21:04)
[2017-07-13] MEDS: hydrOXYzine PAMOATE 50 MG CAPSULE (FP) PO PRN (21:04)
[2017-07-14] MEDS: SERTRALINE HCL 25 MG TABLET (FP) PO SCH (06:21)
[2017-07-14] MEDS: PRENATAL VITAMINS W/ FOLIC ACID TABLET (FP) PO SCH (06:21)
[2017-07-14] MEDS: NICOTINE 14 MG/24 HOURS TOPICAL PATCH TD SCH (09:47)
[2017-07-14] MEDS: ABACAVIR/DOLUTEGRAVIR/LAMIVUDI (TRIUMEQ) TABLET -NF PO SCH (10:11)
--- NOTE | 2017-07-14 14:15 | PN ---
BHS Progress Note (SOAP) Subjective: rash Objective: 07/14/17 14:12 Vital Signs Temperature 98.9 F 07/14/17 06:53 Pulse Rate 73 07/14/17 06:53 Respiratory Rate 16 07/14/17 06:53 Blood Pressure 120/79 07/14/17 06:53 O2 Sat by Pulse Oximetry (%) pt aox3 in nad skin erythematous patch shoulders marcos , neck extending toback Assessment: 07/14/17 14:13 rash may be 2nd to nicotine patch Plan: lidex bid
[2017-07-14] MEDS: FLUOCINONIDE 0.05% CREAM (60 GM TUBE) TP SCH ×2 (15:16→21:11)
[2017-07-14] MEDS: THIAMINE HCL 100 MG TABLET (FP) PO SCH (21:11)
[2017-07-14] MEDS: hydrOXYzine PAMOATE 50 MG CAPSULE (FP) PO PRN (21:11)
[2017-07-15] MEDS: PRENATAL VITAMINS W/ FOLIC ACID TABLET (FP) PO SCH (06:27)
[2017-07-15] MEDS: SERTRALINE HCL 25 MG TABLET (FP) PO SCH (06:27)
[2017-07-15] MEDS: ABACAVIR/DOLUTEGRAVIR/LAMIVUDI (TRIUMEQ) TABLET -NF PO SCH (06:28)
[2017-07-15] MEDS: NICOTINE 14 MG/24 HOURS TOPICAL PATCH TD SCH (09:23)
[2017-07-15] MEDS: FLUOCINONIDE 0.05% CREAM (60 GM TUBE) TP SCH ×2 (09:24→22:04)
[2017-07-15] MEDS: ACETAMINOPHEN 325 MG TABLET (FP) PO PRN (09:25)
[2017-07-15] MEDS: THIAMINE HCL 100 MG TABLET (FP) PO SCH (21:08)
[2017-07-15] MEDS: hydrOXYzine PAMOATE 50 MG CAPSULE (FP) PO PRN (21:10)
[2017-07-16] MEDS: ABACAVIR/DOLUTEGRAVIR/LAMIVUDI (TRIUMEQ) TABLET -NF PO SCH (06:28)
[2017-07-16] MEDS: PRENATAL VITAMINS W/ FOLIC ACID TABLET (FP) PO SCH (06:28)
[2017-07-16] MEDS: SERTRALINE HCL 25 MG TABLET (FP) PO SCH (06:28)
[2017-07-16] MEDS: NICOTINE 14 MG/24 HOURS TOPICAL PATCH TD SCH (09:47)
[2017-07-16] MEDS: FLUOCINONIDE 0.05% CREAM (60 GM TUBE) TP SCH ×2 (09:47→21:14)
[2017-07-16] MEDS: THIAMINE HCL 100 MG TABLET (FP) PO SCH (21:13)
[2017-07-16] MEDS: hydrOXYzine PAMOATE 50 MG CAPSULE (FP) PO PRN (21:14)
[2017-07-17] MEDS: SERTRALINE HCL 25 MG TABLET (FP) PO SCH (06:18)
[2017-07-17] MEDS: PRENATAL VITAMINS W/ FOLIC ACID TABLET (FP) PO SCH (06:18)
[2017-07-17] MEDS: ABACAVIR/DOLUTEGRAVIR/LAMIVUDI (TRIUMEQ) TABLET -NF PO SCH (06:18)
[2017-07-17] MEDS: FLUOCINONIDE 0.05% CREAM (60 GM TUBE) TP SCH ×2 (10:40→22:02)
[2017-07-17] MEDS: NICOTINE 14 MG/24 HOURS TOPICAL PATCH TD SCH (10:40)
--- NOTE | 2017-07-17 15:42 | PN ---
S Progress Note Note: patient c/o insomnia, reports benadryl worked in the past, will ad continue to monitor progress.
[2017-07-17] MEDS: THIAMINE HCL 100 MG TABLET (FP) PO SCH (21:05)
[2017-07-17] MEDS: diphenhydrAMINE HCL 50 MG CAPSULE PO PRN (21:05)
[2017-07-18] MEDS: SERTRALINE HCL 25 MG TABLET (FP) PO SCH (06:20)
[2017-07-18] MEDS: ABACAVIR/DOLUTEGRAVIR/LAMIVUDI (TRIUMEQ) TABLET -NF PO SCH (06:20)
[2017-07-18] MEDS: PRENATAL VITAMINS W/ FOLIC ACID TABLET (FP) PO SCH (06:20)
[2017-07-18] MEDS: NICOTINE 14 MG/24 HOURS TOPICAL PATCH TD SCH (10:24)
[2017-07-18] MEDS: FLUOCINONIDE 0.05% CREAM (60 GM TUBE) TP SCH ×2 (10:24→21:14)
[2017-07-18] MEDS: THIAMINE HCL 100 MG TABLET (FP) PO SCH (21:14)
[2017-07-18] MEDS: diphenhydrAMINE HCL 50 MG CAPSULE PO PRN (21:14)
[2017-07-19] MEDS: NICOTINE 14 MG/24 HOURS TOPICAL PATCH TD SCH (10:03)
[2017-07-19] MEDS: SERTRALINE HCL 25 MG TABLET (FP) PO SCH (10:03)
[2017-07-19] MEDS: PRENATAL VITAMINS W/ FOLIC ACID TABLET (FP) PO SCH (10:03)
[2017-07-19] MEDS: FLUOCINONIDE 0.05% CREAM (60 GM TUBE) TP SCH ×2 (10:03→21:05)
[2017-07-19] MEDS: ABACAVIR/DOLUTEGRAVIR/LAMIVUDI (TRIUMEQ) TABLET -NF PO SCH (10:03)
[2017-07-19] MEDS: ACETAMINOPHEN 325 MG TABLET (FP) PO PRN (13:48)
[2017-07-19] MEDS: THIAMINE HCL 100 MG TABLET (FP) PO SCH (21:05)
[2017-07-19] MEDS: diphenhydrAMINE HCL 50 MG CAPSULE PO PRN (21:05)
[2017-07-20] MEDS: ABACAVIR/DOLUTEGRAVIR/LAMIVUDI (TRIUMEQ) TABLET -NF PO SCH (08:00)
[2017-07-20] MEDS: PRENATAL VITAMINS W/ FOLIC ACID TABLET (FP) PO SCH (08:00)
[2017-07-20] MEDS: SERTRALINE HCL 25 MG TABLET (FP) PO SCH (08:00)
[2017-07-20] MEDS: FLUOCINONIDE 0.05% CREAM (60 GM TUBE) TP SCH ×2 (09:11→21:37)
[2017-07-20] MEDS: NICOTINE 14 MG/24 HOURS TOPICAL PATCH TD SCH (09:11)
[2017-07-20] MEDS: THIAMINE HCL 100 MG TABLET (FP) PO SCH (21:37)
[2017-07-20] MEDS: diphenhydrAMINE HCL 50 MG CAPSULE PO PRN (21:37)
[2017-07-21] MEDS: SERTRALINE HCL 25 MG TABLET (FP) PO SCH (06:59)
[2017-07-21] MEDS: PRENATAL VITAMINS W/ FOLIC ACID TABLET (FP) PO SCH (09:38)
[2017-07-21] MEDS: NICOTINE 14 MG/24 HOURS TOPICAL PATCH TD SCH (09:38)
[2017-07-21] MEDS: FLUOCINONIDE 0.05% CREAM (60 GM TUBE) TP SCH ×2 (10:49→21:09)
[2017-07-21] MEDS: ABACAVIR/DOLUTEGRAVIR/LAMIVUDI (TRIUMEQ) TABLET -NF PO SCH (10:52)
[2017-07-21] MEDS: THIAMINE HCL 100 MG TABLET (FP) PO SCH (21:09)
[2017-07-21] MEDS: diphenhydrAMINE HCL 50 MG CAPSULE PO PRN (21:09)
[2017-07-22] MEDS: FLUOCINONIDE 0.05% CREAM (60 GM TUBE) TP SCH ×2 (10:04→21:19)
[2017-07-22] MEDS: NICOTINE 14 MG/24 HOURS TOPICAL PATCH TD SCH (10:04)
[2017-07-22] MEDS: PRENATAL VITAMINS W/ FOLIC ACID TABLET (FP) PO SCH (10:05)
[2017-07-22] MEDS: SERTRALINE HCL 25 MG TABLET (FP) PO SCH (10:06)
[2017-07-22] MEDS: ABACAVIR/DOLUTEGRAVIR/LAMIVUDI (TRIUMEQ) TABLET -NF PO SCH (10:06)
[2017-07-22] MEDS: diphenhydrAMINE HCL 50 MG CAPSULE PO PRN (21:20)
[2017-07-22] MEDS: THIAMINE HCL 100 MG TABLET (FP) PO SCH (21:20)
[2017-07-23 07:15] VITALS: TEMP 97.7
[2017-07-23] MEDS: NICOTINE 14 MG/24 HOURS TOPICAL PATCH TD SCH (10:12)
[2017-07-23] MEDS: PRENATAL VITAMINS W/ FOLIC ACID TABLET (FP) PO SCH (10:12)
[2017-07-23] MEDS: SERTRALINE HCL 25 MG TABLET (FP) PO SCH (10:13)
[2017-07-23] MEDS: FLUOCINONIDE 0.05% CREAM (60 GM TUBE) TP SCH ×2 (10:13→21:09)
[2017-07-23] MEDS: ABACAVIR/DOLUTEGRAVIR/LAMIVUDI (TRIUMEQ) TABLET -NF PO SCH (10:13)
[2017-07-23] MEDS: diphenhydrAMINE HCL 50 MG CAPSULE PO PRN (21:08)
[2017-07-23] MEDS: THIAMINE HCL 100 MG TABLET (FP) PO SCH (21:08)
[2017-07-24 07:25] VITALS: BP 130/82; PULSE 72
[2017-07-24] MEDS: PRENATAL VITAMINS W/ FOLIC ACID TABLET (FP) PO SCH (09:55)
[2017-07-24] MEDS: ABACAVIR/DOLUTEGRAVIR/LAMIVUDI (TRIUMEQ) TABLET -NF PO SCH (09:55)
[2017-07-24] MEDS: SERTRALINE HCL 25 MG TABLET (FP) PO SCH (09:56)
[2017-07-24] MEDS: NICOTINE 14 MG/24 HOURS TOPICAL PATCH TD SCH (09:56)
[2017-07-24] MEDS: FLUOCINONIDE 0.05% CREAM (60 GM TUBE) TP SCH (09:56)
--- NOTE | 2017-07-24 10:23 | PN ---
Psychiatric Progress Note Vital Signs: Vital Signs Period Temp Pulse Resp BP Sys/Velarde Pulse Ox Last 24 Hr 97.7 F 72 18-18 130/82 Date of Session: 07/24/17 Chief Complaint:: discharge visit HPI: Patient has addressed cocaine, opioid.nicotine dependence comorbid MDD. ROS: HIV+ and Asthma medically managed. Current Medications: Active Medications Generic Name Dose Route Start Last Admin Trade Name Freq PRN Reason Stop Dose Admin Abacavir/Dolutegravir/Lamivudine 1 each 07/21/17 10:00 07/24/17 09:55 Triumeq (Non-Formulary) PO 1 each DAILY@1000 [facility] Administration Acetaminophen 650 mg 07/10/17 15:06 07/19/17 13:48 Tylenol - PO 650 mg Q4H PRN Administration FEVER Al Hydroxide/Mg Hydroxide 30 ml 07/10/17 15:06 Mylanta Oral Suspension - PO Q6H PRN DYSPEPSIA Albuterol Sulfate 2 puff 07/10/17 15:06 Ventolin Hfa Inhaler - IH Q4H PRN ASTHMA Albuterol/Ipratropium 1 amp 07/10/17 15:07 Duoneb - NEB Q6H PRN SHORTNESS OF BREATH Diphenhydramine HCl 50 mg 07/17/17 15:41 07/23/17 21:08 Benadryl - PO 50 mg HS PRN Administration INSOMNIA Eucalyptus/Menthol/Phenol/Sorbitol 1 each 07/10/17 15:06 Cepastat Lozenge - MM Q4H PRN SORE THROAT Fluocinonide 1 applic 07/14/17 14:15 07/24/17 09:56 Lidex 0.05% Cream - TP Not Given BID [facility] Guaifenesin 10 ml 07/10/17 15:06 Robitussin Dm - PO Q6H PRN COUGH Hydroxyzine Pamoate 50 mg 07/10/17 15:06 07/16/17 21:14 Vistaril - PO 50 mg Q4H PRN Administration AGITATION Ibuprofen 400 mg 07/10/17 15:06 Motrin - PO Q6H PRN Pain Level 4-6 Loperamide HCl 4 mg 07/10/17 15:06 Imodium - PO Q6H PRN DIARRHEA Magnesium Citrate 300 ml 07/10/17 15:06 Citroma - PO Q48H PRN CONSTIPATION Magnesium Hydroxide 30 ml 07/10/17 15:06 Milk Of Magnesia - PO DAILY PRN CONSTIPATION Nicotine 14 mg 07/11/17 10:00 07/24/17 09:56 Nicoderm Patch - TD Not Given DAILY EDILIA Nicotine Polacrilex 2 mg 07/10/17 15:06 Nicorette Gum - BUC Q2H PRN NICOTINE REPLACEMENT RX Multivit/Folic Acid/Iron 1 tab 07/21/17 10:00 07/24/17 09:55 Vitamins (Sjr) - PO 1 tab DAILY@1000 EDILIA Administration Pseudoephedrine/Triprolidine 1 combo 07/10/17 15:06 Actifed - PO TID PRN NASAL CONGESTION Sertraline HCl 25 mg 07/22/17 10:00 07/24/17 09:56 Zoloft - PO Not Given DAILY@1000 EDILIA Thiamine HCl 100 mg 07/10/17 22:00 07/23/17 21:08 Vitamin B1 - PO 100 mg HS EDILIA Administration Current Side Effect: No Lab tests ordered: No Lab tests reviewed: Yes Provider note:: Patient has completed today his treatment andmet his goals, will continue to address his issues at [facility] outpatient treatment program. He gained insights into importance of changing attitudes and utilize all supports available to prevent relapses, patient was encouraged to continue maintain abstinence and to follow with his aftercare plans. Patient timboues finding Zoloft effective, his mood is brighter, denies suicidal and homicidal thoughts, scripts provided, patient is stable for discharge today. Total face to face time:: 25 Mental Status Exam - Mental Status Exam Alert and Oriented to: Time, Place, Person Cognitive Function: Good Patient Appearance: Well Groomed Mood: Hopeful Affect: Appropriate, Mood Congruent Patient Behavior: Appropriate, Cooperative Speech Pattern: Clear, Appropriate Voice Loudness: Normal Thought Process: Intact, Goal Oriented Thought Disorder: Not Present Hallucinations: Denies Suicidal Ideation: Denies Homicidal Ideation: Denies Insight/Judgement: Fair Sleep: Fair Appetite: Fair Muscle strength/Tone: Normal Gait/Station: Normal Psychiatric Treatment Plan - Problem List (1) Opioid dependence Current Visit: Yes (2) Cocaine dependence Current Visit: No Qualifiers: Substance use status: uncomplicated Qualified Code(s): F14.20 - Cocaine dependence, uncomplicated (3) MDD (major depressive disorder) Current Visit: No Comment: States he was diagnosed with MDD on 05/2017. (4) Nicotine dependence Current Visit: No Qualifiers: Nicotine product type: cigarettes Substance use status: uncomplicated Qualified Code(s): F17.210 - Nicotine dependence, cigarettes, uncomplicated
== END 2017-07-24 11:27 | disposition home or self-care (01) | DRG 772 ==
LOC: YASAS 14:45 → Y5N 14:46
PROVIDERS: ADMIT Psychiatry & Neurology Psychiatry; ATTEND Psychiatry & Neurology Psychiatry
PROC: HZ42ZZZ Group Counseling for Substance Abuse Treatment, Cognitive-Behavioral (ICD-10-PCS; principal; 2017-07-10)
DX: F11.20 Opioid dependence, uncomplicated (principal); F14.20 Cocaine dependence, uncomplicated; F17.210 Nicotine dependence, cigarettes, uncomplicated; F33.9 Major depressive disorder, recurrent, unspecified; J45.909 Unspecified asthma, uncomplicated; Z21 Asymptomatic human immunodeficiency virus [HIV] infection status

== ENCOUNTER 2018-08-28 16:40 | Inpatient (IN) | payer OTHER ==
[2018-08-28 21:27] VITALS: BMI 25.7
--- NOTE | 2018-08-28 22:44 | HP ---
COWS - Scale Resting Pulse: 1= [place] 81-100 Sweatin= Chills/Flushing Restless Observation: 3= Extraneous Movement Pupil Size: 1= Pupils >than Normal Bone or Joint Aches: 1= Mild Discomfort Runny Nose/ Eye Tearin= Runny Nose/Eyes GI Upset > 30mins: 1= Stomach Cramp Tremor Observation: 1= Tremor [place], Not Seen Yawning Observation: 1= 1-2x During Session Anxiety or Irritability: 1=Feels Anxious/Irritable Goose Flesh Skin: 0=Smooth Skin COWS Score: 13 CIWA Score - Admission Criteria OASAS Guidelines: Admission for Medically Managed Detox: Requires at least one of the followin. CIWA greater than 12 2. Seizures within the past 24 hours 3. Delirium tremens within the past 24 hours 4. Hallucinations within the past 24 hours 5. Acute intervention needed for co occurring medical disorder 6. Acute intervention needed for co occurring psychiatric disorder 7. Severe withdrawal that cannot be handled at a lower level of care (continued vomiting, continued diarrhea, abnormal vital signs) requiring intravenous medication and/or fluids 8. Admission ROS [facility] Chief Complaint: here for heroin detox and cocaine use 57 yo with HIV, asthma was last here about 1 year ago- pt states that after rehab he left [facility] and was doing well- relapsed about 3 months to using heroin and cocaine. Living in [place] heroin: 2-3 bags, IV, no OD cocaine $20/day DUR- neg Utox- oscar, fen, Mop, MTD Allergies/Adverse Reactions: Allergies Allergy/AdvReac Type Severity Reaction Status Date / Time olanzapine [From Zyprexa] Allergy Severe Difficulty Verified 08/28/18 21:24 Breathing quetiapine fumarate AdvReac Intermediate Difficulty Verified 08/28/18 21:24 [From Seroquel] Breathing Exam Limitations: No Limitations - Ebola screening Have you traveled outside of the country in the last 21 days: No Have you had contact with anyone from an Ebola affected area: No Patient History - Patient Medical History Hx Anemia: No Hx Asthma: Yes (on albuterol inhaler) Hx Chronic Obstructive Pulmonary Disease (COPD): No Hx Cancer: No Hx Cardiac Disorders: No Hx Congestive Heart Failure: No Hx Hypertension: No Hx Hypercholesterolemia: No Hx Pacemaker: No HX Cerebrovascular Accident: No Hx Seizures: No Hx Dementia: No Hx Diabetes: No Hx Gastrointestinal Disorders: No Hx Liver Disease: No Hx Genitourinary Disorders: No Hx Sexually Transmitted Disorders: No Hx Renal Disease (ESRD): No Hx Thyroid Disease: No Hx Human Immunodeficiency Virus (HIV): Yes (SINCE 1982, on HAART) Hx Hepatitis C: Yes (cleared with treatment) Hx Depression: Yes Hx Suicide Attempt: No (denies SI/HI at this time) Hx Bipolar Disorder: No Hx Schizophrenia: No - Patient Surgical History Past Surgical History: No Hx Neurologic Surgery: No Hx Cataract Extraction: No Hx Cardiac Surgery: No Hx Lung Surgery: No Hx Breast Surgery: No Hx Breast Biopsy: No Hx Abdominal Surgery: No Hx Appendectomy: No Hx Cholecystectomy: No Hx Genitourinary Surgery: No Hx Section: No Hx Orthopedic Surgery: No Hx Hysterectomy: No Anesthesia Reaction: No (NA) - PPD History Date: 01/11/17 Results: 0 mm. - Smoking Cessation Smoking history: Current every day smoker Have you smoked in the past 12 months: Yes Aproximately how many cigarettes per day: 5 Cigars Per Day: 0 Hx Chewing Tobacco Use: No Initiated information on smoking cessation: Yes 'Breaking Loose' booklet given: 08/28/18 - Substance & Tx. History Hx Alcohol Use: No Hx Substance Use: Yes Substance Use Type: Cocaine, Heroin - Substances abused Heroin Substance route: Injection Frequency: Daily Amount used: 3-4 bags Age of first use: 8 Date of last use: 08/28/18 Cocaine Frequency: 3-6 times per week Family Disease History - Family Disease History Family Disease History: Other: Father (ALCOHOL,), Mother (ALCOHOL, DESEASED) Admission Physical Exam S - Vital Signs Vital Signs: Vital Signs - 24 hr 08/28/18 21:25 Temperature 98.9 F Pulse Rate 69 Respiratory 18 Rate Blood Pressure 143/84 - Physical General Appearance: Yes: Within Normal Limits HEENTM: Yes: Within Normal Limits Respiratory: Yes: Within Normal Limits, Lungs Clear Neck: Yes: Within Normal Limits, No masses,lesions,Nodules Cardiology: Yes: Within Normal Limits, Regular Rate Abdominal: Yes: Within Normal Limits, Normal Bowel Sounds, Non Tender, Flat Back: Yes: Within Normal Limits Musculoskeletal: Yes: Within Normal Limits, full range of Motion Extremities: Yes: Within Normal Limits, Normal Capillary Refill, Normal Inspection Neurological: Yes: Within Normal Limits, ivory carver II-XII NML intact, Fully Oriented Integumentary: Yes: Track Hicks, Other (red maculopapular rash on back- itchy) Lymphatic: Yes: Within Normal Limits - Diagnostic (1) Opioid dependence Current Visit: No Status: Acute (2) Asthma Current Visit: No Status: Chronic Qualifiers: Asthma severity: mild Asthma persistence: intermittent Asthma complication type: uncomplicated Qualified Code(s): J45.20 - Mild intermittent asthma, uncomplicated (3) HIV (human immunodeficiency virus infection) Current Visit: No Status: Chronic (4) Nicotine dependence Current Visit: No Status: Chronic Qualifiers: Nicotine product type: cigarettes Substance use status: uncomplicated Qualified Code(s): F17.210 - Nicotine dependence, cigarettes, uncomplicated Breathalyzer - Breathalyzer Breathalyzer: 0 Urine Drug Screen - Test Device Lot number: [id number] Expiration date: 03/23/20 - Control Is test valid?: Yes - Results Drug screen NEGATIVE: No Urine drug screen results: OSCAR-Cocaine, FEN-Fentanyl, MOP-Opiates, MTD-Methadone Inpatient Rehab Admission - Rehab Decision to Admit Inpatient rehab admission?: No
[2018-08-28] MEDS ORDERED: MAGNESIUM CITRATE 300 ML BOTTLE PO PRN (22:46)
[2018-08-28] MEDS ORDERED: ACETAMINOPHEN 325 MG TABLET (FP) PO PRN ×2 (22:46)
[2018-08-28] MEDS ORDERED: MAGNESIUM HYDROX 2400MG/30ML ORAL SUSPENSION 30 ML CUP PO PRN (22:46)
[2018-08-28] MEDS ORDERED: METHOCARBAMOL 500 MG TABLET PO PRN (22:46)
[2018-08-28] MEDS ORDERED: BISMUTH SUBSALICYLATE 524 MG/30 ML UD PO PRN (22:46)
[2018-08-28] MEDS ORDERED: cloNIDine HCL 0.1 MG TABLET PO PRN (22:46)
[2018-08-28] MEDS ORDERED: MENTHOL/PHENOL 1 EACH UD MM PRN (22:46)
[2018-08-28] MEDS ORDERED: MAG HYDROX/AL HYDROX/SIMETH 30 ML UNIT-DOSE CUP PO PRN (22:46)
[2018-08-28] MEDS ORDERED: IBUPROFEN 400 MG TABLET (FP) PO PRN (22:46)
[2018-08-28] MEDS ORDERED: ONDANSETRON *ODT* 4 MG TABLET SL PRN (22:46)
[2018-08-28] MEDS ORDERED: HYDROCORTISONE 0.5% TOPICAL CREAM 30 GM TUBE TP PRN (22:48)
[2018-08-28] MEDS ORDERED: ALBUTEROL SO4 8 GM HFA INHALER IH PRN (22:48)
[2018-08-28] MEDS ORDERED: METHADONE HCL 10 MG TABLET (FOR DETOX USE ONLY) PO ONE (23:00)
[2018-08-29] MEDS: clonazePAM 0.5 MG TABLET PO PRN ×3 (06:03→22:13)
[2018-08-29] MEDS ORDERED: METHADONE HCL 10 MG TABLET (FOR DETOX USE ONLY) PO ONE (10:00)
[2018-08-29] MEDS: PRENATAL VITAMINS W/ FOLIC ACID TABLET (FP) PO SCH (10:07)
[2018-08-29] MEDS: ABACAVIR/DOLUTEGRAVIR/LAMIVUDI (TRIUMEQ) TABLET -NF PO SCH (11:53)
[2018-08-29 12:38] LABS: HEMATOCRIT 37.9 % (35.4-49); HEMOGLOBIN 12.7 GM/dL (11.7-16.9); MCH 29.7 pg (25.7-33.7); MCHC 33.5 g/dl (32.0-35.9); MEAN CELL VOLUME 88.5 fl (80-96); MEAN PLT VOLUME 7.5 fl (7.5-11.1); PLATELET COUNT 230 K/MM3 (134-434); RBC 4.28 M/mm3 (4.00-5.60); WHITE BLOOD COUNT 3.3 K/mm3 (4.0-10.0)
[2018-08-29 12:59] LABS: ALBUMIN 3.7 g/dl (3.4-5.0); ALK PHOS 80 U/L (45-117); ANION GAP 5 MMOL/L (8-16); BILIRUBIN,TOTAL 0.3 mg/dL (0.2-1); BLOOD UREA NITROGEN 12 mg/dL (7-18); CALCIUM 8.9 mg/dL (8.5-10.1); CHLORIDE 107 mmol/L (98-107); CO2 30 mmol/L (21-32); CREATININE 0.8 mg/dL (0.55-1.3); GLUCOSE,RANDOM 78 mg/dL (74-106); POTASSIUM 4.1 mmol/L (3.5-5.1); SGOT/AST 21 U/L (15-37); SGPT/ALT 18 U/L (13-61); SODIUM 141 mmol/L (136-145); TOT PROT 7.1 g/dl (6.4-8.2)
--- NOTE | 2018-08-29 13:45 | PN ---
BHS COWS - Scale Resting Pulse: 1= [place] 81-100 Sweatin= Chills/Flushing Restless Observation: 1= Difficult to Sit Still Pupil Size: 0= Normal to Room Light Bone or Joint Aches: 1= Mild Discomfort Runny Nose/ Eye Tearin= Nasal Congestion GI Upset > 30mins: 1= Stomach Cramp Tremor Observation of Outstretched Hands: 1= Tremor [place], Not Seen Yawning Observation: 2= >3x During Session Anxiety or Irritability: 1=Feels Anxious/Irritable Goose Flesh Skin: 0=Smooth Skin COWS Score: 10 S Progress Note (SOAP) Subjective: body aches otherwise doing ok today social with peers in day room Objective: 08/29/18 13:43 Vital Signs Temperature 97.7 F 08/29/18 10:38 Pulse Rate 84 08/29/18 10:38 Respiratory Rate 18 08/29/18 10:38 Blood Pressure 111/78 08/29/18 10:38 O2 Sat by Pulse Oximetry (%) Laboratory Last Values WBC 3.3 K/mm3 (4.0-10.0) L 08/29/18 09:00 RBC 4.28 M/mm3 (4.00-5.60) 08/29/18 09:00 Hgb 12.7 GM/dL (11.7-16.9) 08/29/18 09:00 Hct 37.9 % (35.4-49) 08/29/18 09:00 MCV 88.5 fl (80-96) 08/29/18 09:00 MCH 29.7 pg (25.7-33.7) 08/29/18 09:00 MCHC 33.5 g/dl (32.0-35.9) 08/29/18 09:00 RDW 14.0 % (11.9-15.9) 08/29/18 09:00 Plt Count 230 K/MM3 (134-434) 08/29/18 09:00 MPV 7.5 fl (7.5-11.1) 08/29/18 09:00 Sodium 141 mmol/L (136-145) 08/29/18 09:00 Potassium 4.1 mmol/L (3.5-5.1) 08/29/18 09:00 Chloride 107 mmol/L (98-107) 05/08/19 09:00 Carbon Dioxide 30 mmol/L (21-32) 08/29/18 09:00 Anion Gap 5 MMOL/L (8-16) L 08/29/18 09:00 BUN 12 mg/dL (7-18) 08/29/18 09:00 Creatinine 0.8 mg/dL (0.55-1.3) 08/29/18 09:00 Creat Clearance w eGFR 98.94 (>60) 08/29/18 09:00 Random Glucose 78 mg/dL (74-106) 08/29/18 09:00 Calcium 8.9 mg/dL (8.5-10.1) 08/29/18 09:00 Total Bilirubin 0.3 mg/dL (0.2-1) 08/29/18 09:00 AST 21 U/L (15-37) 08/29/18 09:00 ALT 18 U/L (13-61) 08/29/18 09:00 Alkaline Phosphatase 80 U/L (45-117) 08/29/18 09:00 Total Protein 7.1 g/dl (6.4-8.2) 08/29/18 09:00 Albumin 3.7 g/dl (3.4-5.0) 08/29/18 09:00 lab noted HIV low wbc follow up with infectious disease specialist 08/29/18 13:44 Assessment: 08/29/18 13:45 opiate withdrawal sx Plan: continue detox
[2018-08-29 17:49] LABS: PH,URINE 5.5 (5.0-8.0); URINE APPEARANCE TURBID; URINE BILIRUBIN NEGATIVE (NEGATIVE); URINE COLOR YELLOW; URINE GLUCOSE (UA) NEGATIVE (NEGATIVE); URINE KETONE NEGATIVE (NEGATIVE); URINE LEUK ESTERASE NEGATIVE (NEGATIVE); URINE NITRITE NEGATIVE (NEGATIVE); URINE PROTEIN TRACE (NEGATIVE)
[2018-08-29] MEDS: hydrOXYzine PAMOATE 25 MG CAPSULE (FP) PO PRN (17:49)
[2018-08-29] MEDS: THIAMINE HCL 100 MG TABLET (FP) PO SCH (22:13)
[2018-08-30] MEDS: clonazePAM 0.5 MG TABLET PO PRN (06:09)
[2018-08-30] MEDS ORDERED: METHADONE HCL 10 MG TABLET (FOR DETOX USE ONLY) PO ONE (10:00)
[2018-08-30] MEDS: PRENATAL VITAMINS W/ FOLIC ACID TABLET (FP) PO SCH (10:24)
[2018-08-30] MEDS: ABACAVIR/DOLUTEGRAVIR/LAMIVUDI (TRIUMEQ) TABLET -NF PO SCH (10:24)
--- NOTE | 2018-08-30 11:41 | PN ---
BHS COWS - Scale Resting Pulse: 0= [place] 80 or Below Sweatin= Chills/Flushing Restless Observation: 1= Difficult to Sit Still Pupil Size: 0= Normal to Room Light Bone or Joint Aches: 1= Mild Discomfort Runny Nose/ Eye Tearin= Nasal Congestion GI Upset > 30mins: 1= Stomach Cramp Tremor Observation of Outstretched Hands: 1= Tremor [place], Not Seen Yawning Observation: 1= 1-2x During Session Anxiety or Irritability: 1=Feels Anxious/Irritable Goose Flesh Skin: 0=Smooth Skin COWS Score: 8 S Progress Note (SOAP) Subjective: doing well with methadone detox regimen discuss medication assisted maintenance treatment program Objective: 08/30/18 11:41 Vital Signs Temperature 97.4 F L 08/30/18 09:49 Pulse Rate 78 08/30/18 09:49 Respiratory Rate 20 08/30/18 09:49 Blood Pressure 120/76 08/30/18 09:49 O2 Sat by Pulse Oximetry (%) Laboratory Last Values WBC 3.3 K/mm3 (4.0-10.0) L 08/29/18 09:00 RBC 4.28 M/mm3 (4.00-5.60) 08/29/18 09:00 Hgb 12.7 GM/dL (11.7-16.9) 08/29/18 09:00 Hct 37.9 % (35.4-49) 08/29/18 09:00 MCV 88.5 fl (80-96) 08/29/18 09:00 MCH 29.7 pg (25.7-33.7) 08/29/18 09:00 MCHC 33.5 g/dl (32.0-35.9) 08/29/18 09:00 RDW 14.0 % (11.9-15.9) 08/29/18 09:00 Plt Count 230 K/MM3 (134-434) 08/29/18 09:00 MPV 7.5 fl (7.5-11.1) 08/29/18 09:00 Sodium 141 mmol/L (136-145) 08/29/18 09:00 Potassium 4.1 mmol/L (3.5-5.1) 08/29/18 09:00 Chloride 107 mmol/L (98-107) 08/29/18 09:00 Carbon Dioxide 30 mmol/L (21-32) 08/29/18 09:00 Anion Gap 5 MMOL/L (8-16) L 08/29/18 09:00 BUN 12 mg/dL (7-18) 08/29/18 09:00 Creatinine 0.8 mg/dL (0.55-1.3) 08/29/18 09:00 Creat Clearance w eGFR 98.94 (>60) 08/29/18 09:00 Random Glucose 78 mg/dL (74-106) 08/29/18 09:00 Calcium 8.9 mg/dL (8.5-10.1) 08/29/18 09:00 Total Bilirubin 0.3 mg/dL (0.2-1) 08/29/18 09:00 AST 21 U/L (15-37) 08/29/18 09:00 ALT 18 U/L (13-61) 08/29/18 09:00 Alkaline Phosphatase 80 U/L (45-117) 08/29/18 09:00 Total Protein 7.1 g/dl (6.4-8.2) 08/29/18 09:00 Albumin 3.7 g/dl (3.4-5.0) 08/29/18 09:00 Urine Color Yellow 08/28/18 10:00 Urine Appearance Turbid 08/28/18 10:00 Urine pH 5.5 (5.0-8.0) 08/28/18 10:00 Ur Specific [place] 1.030 (1.010-1.035) 08/28/18 10:00 Urine Protein Trace (NEGATIVE) 08/28/18 10:00 Urine Glucose (UA) Negative (NEGATIVE) 08/28/18 10:00 Urine Ketones Negative (NEGATIVE) 08/28/18 10:00 Urine Blood Negative (NEGATIVE) 08/28/18 10:00 Urine Nitrite Negative (NEGATIVE) 08/28/18 10:00 Urine Bilirubin Negative (NEGATIVE) 08/28/18 10:00 Urine Urobilinogen 1.0 mg/dL (0.2-1.0) 08/28/18 10:00 Ur Leukocyte Esterase Negative (NEGATIVE) 08/28/18 10:00 RPR Titer Nonreactive (NONREACTIVE) 08/29/18 09:00 lab noted Assessment: 08/30/18 11:42 opiate withdrawal sx Plan: continue detox
[2018-08-30] MEDS: THIAMINE HCL 100 MG TABLET (FP) PO SCH (22:19)
[2018-08-30] MEDS: hydrOXYzine PAMOATE 25 MG CAPSULE (FP) PO PRN (22:20)
[2018-08-31] MEDS: MELATONIN 5 MG TABLETS PO PRN ×2 (00:51→21:47)
[2018-08-31] MEDS: PRENATAL VITAMINS W/ FOLIC ACID TABLET (FP) PO SCH (09:20)
[2018-08-31] MEDS ORDERED: METHADONE HCL 10 MG TABLET (FOR DETOX USE ONLY) PO ONE (10:00)
[2018-08-31] MEDS: ABACAVIR/DOLUTEGRAVIR/LAMIVUDI (TRIUMEQ) TABLET -NF PO SCH (10:43)
--- NOTE | 2018-08-31 16:50 | PN ---
BHS COWS - Scale Resting Pulse: 0= [place] 80 or Below Sweatin= No chills or Flushing Restless Observation: 1= Difficult to Sit Still Pupil Size: 0= Normal to Room Light Bone or Joint Aches: 1= Mild Discomfort Runny Nose/ Eye Tearin= None GI Upset > 30mins: 1= Stomach Cramp Tremor Observation of Outstretched Hands: 2= Slight Tremor Visible Yawning Observation: 1= 1-2x During Session Anxiety or Irritability: 0= None Goose Flesh Skin: 0=Smooth Skin COWS Score: 6 BHS Progress Note (SOAP) Subjective: Tremors, Body Aches. Objective: PATIENT A & O X 2 (UNCERTAIN ABOUT CURRENT DAY / DATE). PATIENT OBSERVED AMBULATING ON UNIT UNASSISTED. IN NO ACUTE DISTRESS. 08/31/18 16:51 Vital Signs Temperature 97.1 F L 08/31/18 14:09 Pulse Rate 71 08/31/18 14:09 Respiratory Rate 18 08/31/18 14:09 Blood Pressure 122/73 08/31/18 14:09 O2 Sat by Pulse Oximetry (%) Laboratory Tests 08/28/18 08/29/18 08/29/18 10:00 09:00 09:00 WBC 3.3 L RBC 4.28 Hgb 12.7 Hct 37.9 MCV 88.5 MCH 29.7 MCHC 33.5 RDW 14.0 Plt Count 230 MPV 7.5 Sodium 141 Potassium 4.1 Chloride 107 Carbon Dioxide 30 Anion Gap 5 L BUN 12 Creatinine 0.8 Creat Clearance w eGFR 98.94 Random Glucose 78 Calcium 8.9 Total Bilirubin 0.3 AST 21 ALT 18 Alkaline Phosphatase 80 Total Protein 7.1 Albumin 3.7 Urine Color Yellow Urine Appearance Turbid Urine pH 5.5 Ur Specific [place] 1.030 Urine Protein Trace Urine Glucose (UA) Negative Urine Ketones Negative Urine Blood Negative Urine Nitrite Negative Urine Bilirubin Negative Urine Urobilinogen 1.0 Ur Leukocyte Esterase Negative RPR Titer 08/29/18 09:00 WBC RBC Hgb Hct MCV MCH MCHC RDW Plt Count MPV Sodium Potassium Chloride Carbon Dioxide Anion Gap BUN Creatinine Creat Clearance w eGFR Random Glucose Calcium Total Bilirubin AST ALT Alkaline Phosphatase Total Protein Albumin Urine Color Urine Appearance Urine pH Ur Specific [place] Urine Protein Urine Glucose (UA) Urine Ketones Urine Blood Urine Nitrite Urine Bilirubin Urine Urobilinogen Ur Leukocyte Esterase RPR Titer Nonreactive LABS NOTED. Assessment: 08/31/18 16:53 WITHDRAWAL SYMPTOMS. LEUKOPENIA. Plan: CONTINUE DETOX. PATIENT SCHEDULED FOR D/C TOMORROW.
[2018-08-31] MEDS: THIAMINE HCL 100 MG TABLET (FP) PO SCH (21:46)
[2018-08-31] MEDS: clonazePAM 0.5 MG TABLET PO PRN (21:47)
[2018-09-01] MEDS ORDERED: METHADONE HCL 5 MG TABLET (FOR DETOX USE ONLY) PO ONE (06:00)
[2018-09-01] MEDS: ABACAVIR/DOLUTEGRAVIR/LAMIVUDI (TRIUMEQ) TABLET -NF PO SCH (11:11)
[2018-09-01] MEDS: PRENATAL VITAMINS W/ FOLIC ACID TABLET (FP) PO SCH (11:11)
[2018-09-01 11:22] VITALS: BP 109/70; PULSE 72; TEMP 97.7
--- NOTE | 2018-09-01 12:06 | DS ---
[facility] Detox Discharge Summary Admission Date: 08/28/18 Discharge Date: 09/01/18 - History Present History: Opioid Dependence Additional Comments: PATIENT GOING TO [facility] ([place], [place]) FOR AFTERCARE. PATIENT WAS DISCHARGED FROM DETOX UNIT TO BE TAKEN OVER TO REHAB UNIT IN STABLE MEDICAL CONDITION. Pertinent Past History: Asthma, Hep C, Depression, H.I.V., Nicotine Dependence. - Physical Exam Results Vital Signs: Vital Signs Temperature 97.7 F 09/01/18 11:22 Pulse Rate 72 09/01/18 11:22 Respiratory Rate 18 09/01/18 11:22 Blood Pressure 109/70 09/01/18 11:22 O2 Sat by Pulse Oximetry (%) Pertinent Admission Physical Exam Findings: WITHDRAWAL SYMPTOMS. Laboratory Tests 08/28/18 08/29/18 08/29/18 10:00 09:00 09:00 WBC 3.3 L RBC 4.28 Hgb 12.7 Hct 37.9 MCV 88.5 MCH 29.7 MCHC 33.5 RDW 14.0 Plt Count 230 MPV 7.5 Sodium 141 Potassium 4.1 Chloride 107 Carbon Dioxide 30 Anion Gap 5 L BUN 12 Creatinine 0.8 Creat Clearance w eGFR 98.94 Random Glucose 78 Calcium 8.9 Total Bilirubin 0.3 AST 21 ALT 18 Alkaline Phosphatase 80 Total Protein 7.1 Albumin 3.7 Urine Color Yellow Urine Appearance Turbid Urine pH 5.5 Ur Specific [place] 1.030 Urine Protein Trace Urine Glucose (UA) Negative Urine Ketones Negative Urine Blood Negative Urine Nitrite Negative Urine Bilirubin Negative Urine Urobilinogen 1.0 Ur Leukocyte Esterase Negative RPR Titer 08/29/18 09:00 WBC RBC Hgb Hct MCV MCH MCHC RDW Plt Count MPV Sodium Potassium Chloride Carbon Dioxide Anion Gap BUN Creatinine Creat Clearance w eGFR Random Glucose Calcium Total Bilirubin AST ALT Alkaline Phosphatase Total Protein Albumin Urine Color Urine Appearance Urine pH Ur Specific [place] Urine Protein Urine Glucose (UA) Urine Ketones Urine Blood Urine Nitrite Urine Bilirubin Urine Urobilinogen Ur Leukocyte Esterase RPR Titer Nonreactive LABS NOTED. - Treatment Hospital Course: Detox Protocol Followed, Detoxed Safely, Responded well, Discharged Condition Good, Rehab Referral Accepted Patient has Accepted a Rehab Referral to: [facility] ([place], [place]). - Medication Discharge Medications: Ambulatory Orders Abacavir/Dolutegravir/Lamivudi [Triumeq 600-50-300 mg Tablet] 1 each PO DAILY Sertraline HCl [Zoloft] 25 mg PO DAILY 07/06/17 Albuterol Sulfate Inhaler - [Ventolin HFA Inhaler -] 2 inh PO Q4H PRN #1 inhaler 07/24/17 Sertraline HCl [Zoloft -] 25 mg PO DAILY@1000 #30 tablet 07/24/17 - Diagnosis (1) Opioid dependence with withdrawal Current Visit: Yes Status: Acute (2) Asthma Current Visit: Yes Status: Chronic Qualifiers: Asthma severity: mild Asthma persistence: intermittent Asthma complication type: uncomplicated Qualified Code(s): J45.20 - Mild intermittent asthma, uncomplicated (3) Depression Current Visit: Yes Status: Chronic Qualifiers: Depression Type: unspecified Qualified Code(s): F32.9 - Major depressive disorder, single episode, unspecified (4) HIV (human immunodeficiency virus infection) Current Visit: Yes Status: Chronic Qualifiers: HIV symptom status: unspecified Qualified Code(s): B20 - Human immunodeficiency virus [HIV] disease - AMA Did Patient Leave Against Medical Advice: No
== END 2018-09-01 13:44 | disposition other institution (70) | DRG 773 ==
LOC: YASAS 16:40 → Y3N 23:11
PROVIDERS: ADMIT Surgery; ATTEND Surgery
PROC: HZ2ZZZZ Detoxification Services for Substance Abuse Treatment (ICD-10-PCS; principal; 2018-08-28)
DX: F11.23 Opioid dependence with withdrawal (principal); F17.210 Nicotine dependence, cigarettes, uncomplicated; F32.9 Major depressive disorder, single episode, unspecified; J45.20 Mild intermittent asthma, uncomplicated; Z21 Asymptomatic human immunodeficiency virus [HIV] infection status; D72.819 Decreased white blood cell count, unspecified; Z88.8 Allergy status to other drugs, medicaments and biological substances
CPT/HCPCS: 36415; 80053; 81003; 85027; 86593

== ENCOUNTER 2018-09-01 13:07 | Inpatient (IN) | payer OTHER ==
--- NOTE | 2018-09-01 12:10 | HP ---
[facility] Re[facility] Assess/Revision - Admission History Admitted to Rehab from: [facility] Date of Admission to Rehab: 09/01/2018 - Vital signs Vital Signs: NOTED; STABLE. - Findings Detox History & Physical reviewed: Yes Concur with findings: Yes Comments/Additional Findings: PATIENT'S MEDICAL / MEDICATION HISTORY REVIEWED PRIOR TO DISCHARGE FROM DETOX UNIT. PATIENT WAS DISCHARGED FROM DETOX UNIT TO BE TAKEN OVER TO REHAB UNIT IN STABLE MEDICAL CONDITION. Inpatient Rehab Admission - Rehab Decision to Admit Inpatient rehab admission?: Yes - Initial Determination Are CD services needed?: Yes Free of communicable disease: Yes Not in need of hospitalization: Yes - Rehab Admission Criteria Previous failed treatment: Yes Poor recovery environment: Yes Comorbidities: Yes Lacks judgement: No Patient is meeting Inpatient Rehab admission criteria:: Yes
[~2018-09-01 13:07] MED LIST: ACETAMINOPHEN 325 MG TABLET (FP) PO PRN; ALBUTEROL SO4 8 GM HFA INHALER IH PRN; IBUPROFEN 400 MG TABLET (FP) PO PRN; LOPERAMIDE HCL 2 MG CAPSULE PO PRN; MAG HYDROX/AL HYDROX/SIMETH 30 ML UNIT-DOSE CUP PO PRN; MAGNESIUM CITRATE 300 ML BOTTLE PO PRN; MAGNESIUM HYDROX 2400MG/30ML ORAL SUSPENSION 30 ML CUP PO PRN; MENTHOL/PHENOL 1 EACH UD MM PRN; P-EPHED 60MG/TRIPROLIDI 2.5MG TABLET PO PRN; guaiFENesin 200 MG/10 ML 10 ML UNIT-DOSE CUPS PO PRN
[2018-09-01] MEDS: MELATONIN 5 MG TABLETS PO PRN (21:37)
[2018-09-01] MEDS: THIAMINE HCL 100 MG TABLET (FP) PO SCH (21:37)
[2018-09-02] MEDS: PRENATAL VITAMINS W/ FOLIC ACID TABLET (FP) PO SCH (10:04)
[2018-09-02] MEDS: ABACAVIR/DOLUTEGRAVIR/LAMIVUDI (TRIUMEQ) TABLET -NF PO SCH (10:04)
[2018-09-02] MEDS: MELATONIN 5 MG TABLETS PO PRN (21:38)
[2018-09-02] MEDS: THIAMINE HCL 100 MG TABLET (FP) PO SCH (21:38)
[2018-09-03 07:42] VITALS: TEMP 97.6
[2018-09-03] MEDS: PRENATAL VITAMINS W/ FOLIC ACID TABLET (FP) PO SCH (10:54)
[2018-09-03] MEDS: ABACAVIR/DOLUTEGRAVIR/LAMIVUDI (TRIUMEQ) TABLET -NF PO SCH (10:55)
[2018-09-03] MEDS: BENZOCAINE 20 % GEL TUBE MM SCH ×2 (17:52→21:03)
[2018-09-03] MEDS: THIAMINE HCL 100 MG TABLET (FP) PO SCH (21:02)
[2018-09-03] MEDS: MELATONIN 5 MG TABLETS PO PRN (21:03)
[2018-09-04 07:07] VITALS: BP 122/82; PULSE 84
--- NOTE | 2018-09-04 09:43 | PN ---
[facility] Progress Note Note: PT DECLINED TO CONTINUE WITH REHAB STATING " I HAVE TO GET BACK TO WORK". PT REPORTS HE HAS A PCP DR. KHURRAM QUINONES AT [facility]. PT HAS OWN MEDS. ALERT O X 3. DENIES S/H/I. Home Medications Medication Instructions Recorded Abacavir/Dolutegravir/Lamivudi 1 each PO DAILY 01/09/17 [Triumeq 600-50-300 mg Tablet] Sertraline HCl [Zoloft] 25 mg PO DAILY 07/06/17 Albuterol Sulfate Inhaler - 2 inh PO Q4H PRN #1 inhaler 07/24/17 [Ventolin HFA Inhaler -] Vital Signs 09/04/18 09/04/18 03:30 07:06 Temperature 97.6 F Pulse Rate 84 Respiratory 18 18 Rate Blood Pressure 122/82 MOUTH:RED BLISTER ON LOWER LIP NAD A:COLD SORE PLAN:PT SIGNED OUT AMA FOLLOW UP WITH CD AFTERCARE RECOMMENDATION.
== END 2018-09-04 10:05 | disposition left against medical advice (07) | DRG 770 ==
LOC: YASAS 13:07 → Y5N 13:08
PROVIDERS: ADMIT Neuromusculoskeletal Medicine & OMM; ATTEND Neuromusculoskeletal Medicine & OMM
PROC: HZ42ZZZ Group Counseling for Substance Abuse Treatment, Cognitive-Behavioral (ICD-10-PCS; principal; 2018-09-01)
DX: F11.20 Opioid dependence, uncomplicated (principal); F14.20 Cocaine dependence, uncomplicated; F17.210 Nicotine dependence, cigarettes, uncomplicated; Z21 Asymptomatic human immunodeficiency virus [HIV] infection status; B18.2 Chronic viral hepatitis C; B00.1 Herpesviral vesicular dermatitis

== ENCOUNTER 2020-03-11 13:41 | Inpatient (IN) | payer OTHER ==
[2020-03-11 15:35] VITALS: BMI 25.7
[2020-03-11] MEDS ORDERED: ACETAMINOPHEN 325 MG TABLET (FP) PO PRN (16:26)
[2020-03-11] MEDS ORDERED: LOPERAMIDE HCL 2 MG CAPSULE PO PRN (16:26)
[2020-03-11] MEDS ORDERED: P-EPHED 60MG/TRIPROLIDI 2.5MG TABLET PO PRN (16:26)
[2020-03-11] MEDS ORDERED: MAGNESIUM HYDROX 2400MG/30ML ORAL SUSPENSION 30 ML CUP PO PRN (16:26)
[2020-03-11] MEDS ORDERED: MAGNESIUM CITRATE 300 ML BOTTLE PO PRN (16:26)
[2020-03-11] MEDS ORDERED: guaiFENesin 200 MG/10 ML 10 ML UNIT-DOSE CUPS PO PRN (16:26)
[2020-03-11] MEDS ORDERED: MAG HYDROX/AL HYDROX/SIMETH 30 ML UNIT-DOSE CUP PO PRN (16:26)
[2020-03-11] MEDS ORDERED: IBUPROFEN 400 MG TABLET (FP) PO PRN (16:26)
[2020-03-11] MEDS ORDERED: ALBUTEROL SO4 HFA INHALER IH PRN (16:28)
[2020-03-11] MEDS: PRENATAL VITAMINS W/ FOLIC ACID TABLET (FP) PO SCH (18:42)
[2020-03-11] MEDS: hydrOXYzine PAMOATE 25 MG CAPSULE (FP) PO SCH ×2 (18:42→21:42)
[2020-03-11] MEDS: NICOTINE POLACRILEX 2 MG GUM BC PRN (18:43)
[2020-03-11] MEDS: NICOTINE 14 MG/24 HOURS TOPICAL PATCH TD SCH (18:43)
[2020-03-11] MEDS ORDERED: TUBERCULIN PPD 5 TU/0.1ML VIAL ID ONE (18:45)
[2020-03-11] MEDS: THIAMINE HCL 100 MG TABLET (FP) PO SCH (21:42)
[2020-03-11] MEDS: MELATONIN 5 MG TABLETS PO SCH (21:42)
[2020-03-11] MEDS: [UNRECOGNIZED DRUG - OTHER] AU SCH (21:50)
[2020-03-11] MEDS: CIPROFLOXACIN HCL AU SCH (21:50)
[2020-03-11] MEDS: DEXAMETH AU SCH (21:50)
[2020-03-11 23:09] LABS: URINE APPEARANCE TURBID; URINE BILIRUBIN NEGATIVE (NEGATIVE); URINE COLOR YELLOW; URINE GLUCOSE (UA) NEGATIVE (NEGATIVE); URINE KETONE NEGATIVE (NEGATIVE); URINE LEUK ESTERASE NEGATIVE (NEGATIVE); URINE NITRITE NEGATIVE (NEGATIVE); URINE PROTEIN NEGATIVE (NEGATIVE); URINE UROBILINOGEN 0.2 mg/dL (0.2-1.0)
[2020-03-12] MEDS: hydrOXYzine PAMOATE 25 MG CAPSULE (FP) PO SCH ×5 (06:46→21:22)
[2020-03-12] MEDS ORDERED: ABACAVIR/DOLUTEGRAVIR/LAMIVUDI (TRIUMEQ) TABLET -NF PO SCH (10:00)
[2020-03-12 10:08] LABS: POTASSIUM 4.3 mmol/L (3.5-5.1)
[2020-03-12 10:13] LABS: HEMATOCRIT 41.9 % (35.4-49); HEMOGLOBIN 13.9 GM/dL (11.7-16.9); MCH 30.5 pg (25.7-33.7); MCHC 33.1 g/dl (32.0-35.9); MEAN CELL VOLUME 92.2 fl (80-96); MEAN PLT VOLUME 8.1 fl (7.5-11.1); PLATELET COUNT 276 K/MM3 (134-434); RBC 4.55 M/mm3 (4.00-5.60); RDW 15.8 % (11.9-15.9); WHITE BLOOD COUNT 4.7 K/mm3 (4.0-10.0)
[2020-03-12 10:14] LABS: CALCIUM 9.3 mg/dL (8.5-10.1)
[2020-03-12 10:16] LABS: ALBUMIN 3.7 g/dl (3.4-5.0); BLOOD UREA NITROGEN 14.4 mg/dL (7-18)
[2020-03-12] MEDS: PRENATAL VITAMINS W/ FOLIC ACID TABLET (FP) PO SCH (10:18)
[2020-03-12] MEDS: NICOTINE 14 MG/24 HOURS TOPICAL PATCH TD SCH (10:18)
[2020-03-12] MEDS: NICOTINE POLACRILEX 2 MG GUM BC PRN ×2 (10:18→19:38)
[2020-03-12 10:19] LABS: CREATININE 1.1 mg/dL (0.55-1.3)
[2020-03-12 10:20] LABS: BILIRUBIN,TOTAL 0.2 mg/dL (0.2-1); TOT PROT 7.7 g/dl (6.4-8.2)
[2020-03-12 10:34] LABS: SICKLE CELL SCREEN NEGATIVE (NEGATIVE)
[2020-03-12] MEDS: CIPROFLOXACIN HCL AU SCH ×2 (14:12→21:23)
[2020-03-12] MEDS: [UNRECOGNIZED DRUG - OTHER] AU SCH ×2 (14:12→21:23)
[2020-03-12] MEDS: DEXAMETH AU SCH ×2 (14:12→21:23)
[2020-03-12] MEDS: THIAMINE HCL 100 MG TABLET (FP) PO SCH (21:22)
[2020-03-12] MEDS: MELATONIN 5 MG TABLETS PO SCH (21:22)
[2020-03-13] MEDS: ABACAVIR/DOLUTEGRAVIR/LAMIVUDI (TRIUMEQ) TABLET -NF PO SCH (06:13)
[2020-03-13] MEDS: hydrOXYzine PAMOATE 25 MG CAPSULE (FP) PO SCH ×5 (06:13→23:16)
[2020-03-13] MEDS: NICOTINE 14 MG/24 HOURS TOPICAL PATCH TD SCH (09:28)
[2020-03-13] MEDS: PRENATAL VITAMINS W/ FOLIC ACID TABLET (FP) PO SCH (09:28)
[2020-03-13] MEDS: [UNRECOGNIZED DRUG - OTHER] AU SCH ×2 (09:28→23:15)
[2020-03-13] MEDS: DEXAMETH AU SCH ×2 (09:28→23:15)
[2020-03-13] MEDS: CIPROFLOXACIN HCL AU SCH ×2 (09:28→23:15)
[2020-03-13] MEDS ORDERED: PT OWN MED DRAWER 7, Y5N ONE (13:55)
[2020-03-13] MEDS ORDERED: MASKS NR ONE (18:33)
[2020-03-13] MEDS: THIAMINE HCL 100 MG TABLET (FP) PO SCH (23:16)
[2020-03-13] MEDS: MELATONIN 5 MG TABLETS PO SCH (23:16)
[2020-03-14] MEDS: ABACAVIR/DOLUTEGRAVIR/LAMIVUDI (TRIUMEQ) TABLET -NF PO SCH (06:15)
[2020-03-14] MEDS: hydrOXYzine PAMOATE 25 MG CAPSULE (FP) PO SCH ×5 (06:15→22:12)
[2020-03-14] MEDS: NICOTINE 14 MG/24 HOURS TOPICAL PATCH TD SCH (09:38)
[2020-03-14] MEDS: [UNRECOGNIZED DRUG - OTHER] AU SCH ×2 (09:39→22:12)
[2020-03-14] MEDS: CIPROFLOXACIN HCL AU SCH ×2 (09:39→22:12)
[2020-03-14] MEDS: PRENATAL VITAMINS W/ FOLIC ACID TABLET (FP) PO SCH (09:39)
[2020-03-14] MEDS: DEXAMETH AU SCH ×2 (09:39→22:12)
[2020-03-14] MEDS: THIAMINE HCL 100 MG TABLET (FP) PO SCH (22:12)
[2020-03-14] MEDS: MELATONIN 5 MG TABLETS PO SCH (22:12)
[2020-03-15] MEDS: ABACAVIR/DOLUTEGRAVIR/LAMIVUDI (TRIUMEQ) TABLET -NF PO SCH (06:23)
[2020-03-15] MEDS: hydrOXYzine PAMOATE 25 MG CAPSULE (FP) PO SCH ×5 (06:23→22:19)
[2020-03-15] MEDS: PRENATAL VITAMINS W/ FOLIC ACID TABLET (FP) PO SCH (10:17)
[2020-03-15] MEDS: NICOTINE 14 MG/24 HOURS TOPICAL PATCH TD SCH (10:17)
[2020-03-15] MEDS: [UNRECOGNIZED DRUG - OTHER] AU SCH ×2 (10:17→22:19)
[2020-03-15] MEDS: DEXAMETH AU SCH ×2 (10:17→22:19)
[2020-03-15] MEDS: CIPROFLOXACIN HCL AU SCH ×2 (10:17→22:19)
[2020-03-15] MEDS: THIAMINE HCL 100 MG TABLET (FP) PO SCH (22:19)
[2020-03-15] MEDS: MELATONIN 5 MG TABLETS PO SCH (22:19)
[2020-03-16] MEDS: hydrOXYzine PAMOATE 25 MG CAPSULE (FP) PO SCH ×5 (06:20→21:14)
[2020-03-16] MEDS: ABACAVIR/DOLUTEGRAVIR/LAMIVUDI (TRIUMEQ) TABLET -NF PO SCH (09:54)
[2020-03-16] MEDS: PRENATAL VITAMINS W/ FOLIC ACID TABLET (FP) PO SCH (09:54)
[2020-03-16] MEDS: CIPROFLOXACIN HCL AU SCH (09:55)
[2020-03-16] MEDS: NICOTINE 14 MG/24 HOURS TOPICAL PATCH TD SCH (09:55)
[2020-03-16] MEDS: DEXAMETH AU SCH (09:55)
[2020-03-16] MEDS: [UNRECOGNIZED DRUG - OTHER] AU SCH (09:55)
[2020-03-16] MEDS: THIAMINE HCL 100 MG TABLET (FP) PO SCH (21:14)
[2020-03-16] MEDS: MELATONIN 5 MG TABLETS PO SCH (21:14)
[2020-03-17] MEDS: hydrOXYzine PAMOATE 25 MG CAPSULE (FP) PO SCH ×5 (06:19→21:49)
[2020-03-17] MEDS: ABACAVIR/DOLUTEGRAVIR/LAMIVUDI (TRIUMEQ) TABLET -NF PO SCH (06:19)
[2020-03-17] MEDS: NICOTINE 14 MG/24 HOURS TOPICAL PATCH TD SCH (09:35)
[2020-03-17] MEDS: PRENATAL VITAMINS W/ FOLIC ACID TABLET (FP) PO SCH (09:46)
[2020-03-17] MEDS: MELATONIN 5 MG TABLETS PO SCH (21:49)
[2020-03-17] MEDS: THIAMINE HCL 100 MG TABLET (FP) PO SCH (21:49)
[2020-03-18] MEDS: ABACAVIR/DOLUTEGRAVIR/LAMIVUDI (TRIUMEQ) TABLET -NF PO SCH (06:39)
[2020-03-18] MEDS: hydrOXYzine PAMOATE 25 MG CAPSULE (FP) PO SCH ×5 (07:35→21:16)
[2020-03-18] MEDS: PRENATAL VITAMINS W/ FOLIC ACID TABLET (FP) PO SCH (10:03)
[2020-03-18] MEDS: NICOTINE 14 MG/24 HOURS TOPICAL PATCH TD SCH (10:03)
[2020-03-18] MEDS: THIAMINE HCL 100 MG TABLET (FP) PO SCH (21:16)
[2020-03-18] MEDS: MELATONIN 5 MG TABLETS PO SCH (21:16)
[2020-03-19] MEDS: ABACAVIR/DOLUTEGRAVIR/LAMIVUDI (TRIUMEQ) TABLET -NF PO SCH (06:22)
[2020-03-19] MEDS: hydrOXYzine PAMOATE 25 MG CAPSULE (FP) PO SCH ×5 (06:22→22:20)
[2020-03-19] MEDS: NICOTINE 14 MG/24 HOURS TOPICAL PATCH TD SCH (09:50)
[2020-03-19] MEDS: PRENATAL VITAMINS W/ FOLIC ACID TABLET (FP) PO SCH (09:51)
[2020-03-19] MEDS: THIAMINE HCL 100 MG TABLET (FP) PO SCH (21:11)
[2020-03-19] MEDS: MELATONIN 5 MG TABLETS PO SCH (21:11)
[2020-03-20] MEDS: hydrOXYzine PAMOATE 25 MG CAPSULE (FP) PO SCH ×5 (06:30→21:39)
[2020-03-20] MEDS: ABACAVIR/DOLUTEGRAVIR/LAMIVUDI (TRIUMEQ) TABLET -NF PO SCH (06:45)
[2020-03-20] MEDS: NICOTINE 14 MG/24 HOURS TOPICAL PATCH TD SCH (10:05)
[2020-03-20] MEDS: PRENATAL VITAMINS W/ FOLIC ACID TABLET (FP) PO SCH (10:06)
[2020-03-20] MEDS: THIAMINE HCL 100 MG TABLET (FP) PO SCH (21:39)
[2020-03-20] MEDS: MELATONIN 5 MG TABLETS PO SCH (21:39)
[2020-03-21] MEDS: ABACAVIR/DOLUTEGRAVIR/LAMIVUDI (TRIUMEQ) TABLET -NF PO SCH (06:30)
[2020-03-21] MEDS: hydrOXYzine PAMOATE 25 MG CAPSULE (FP) PO SCH ×5 (06:30→21:19)
[2020-03-21] MEDS: PRENATAL VITAMINS W/ FOLIC ACID TABLET (FP) PO SCH (09:38)
[2020-03-21] MEDS: NICOTINE 14 MG/24 HOURS TOPICAL PATCH TD SCH (09:38)
[2020-03-21] MEDS: MELATONIN 5 MG TABLETS PO SCH (21:18)
[2020-03-21] MEDS: THIAMINE HCL 100 MG TABLET (FP) PO SCH (21:18)
[2020-03-22] MEDS: hydrOXYzine PAMOATE 25 MG CAPSULE (FP) PO SCH ×5 (06:05→21:35)
[2020-03-22] MEDS: ABACAVIR/DOLUTEGRAVIR/LAMIVUDI (TRIUMEQ) TABLET -NF PO SCH (06:05)
[2020-03-22] MEDS: NICOTINE 14 MG/24 HOURS TOPICAL PATCH TD SCH (09:31)
[2020-03-22] MEDS: PRENATAL VITAMINS W/ FOLIC ACID TABLET (FP) PO SCH (09:32)
[2020-03-22] MEDS: THIAMINE HCL 100 MG TABLET (FP) PO SCH (21:35)
[2020-03-22] MEDS: MELATONIN 5 MG TABLETS PO SCH (21:35)
[2020-03-23] MEDS: ABACAVIR/DOLUTEGRAVIR/LAMIVUDI (TRIUMEQ) TABLET -NF PO SCH (06:29)
[2020-03-23] MEDS: hydrOXYzine PAMOATE 25 MG CAPSULE (FP) PO SCH ×5 (06:45→21:14)
[2020-03-23] MEDS: PRENATAL VITAMINS W/ FOLIC ACID TABLET (FP) PO SCH (09:41)
[2020-03-23] MEDS: NICOTINE 14 MG/24 HOURS TOPICAL PATCH TD SCH (09:41)
[2020-03-23] MEDS: MELATONIN 5 MG TABLETS PO SCH (21:14)
[2020-03-23] MEDS: THIAMINE HCL 100 MG TABLET (FP) PO SCH (21:14)
[2020-03-24] MEDS: ABACAVIR/DOLUTEGRAVIR/LAMIVUDI (TRIUMEQ) TABLET -NF PO SCH (06:00)
[2020-03-24] MEDS: hydrOXYzine PAMOATE 25 MG CAPSULE (FP) PO SCH (06:42)
[2020-03-24 06:43] VITALS: BP 111/80; PULSE 79; TEMP 97.7
== END 2020-03-24 08:56 | disposition home or self-care (01) | DRG 772 ==
LOC: YASAS 13:41 → Y3W 16:43 → Y5N 03-13 13:52
PROVIDERS: ADMIT Allergy & Immunology; ATTEND Allergy & Immunology
PROC: HZ42ZZZ Group Counseling for Substance Abuse Treatment, Cognitive-Behavioral (ICD-10-PCS; principal; 2020-03-11)
DX: F10.20 Alcohol dependence, uncomplicated (principal); F14.20 Cocaine dependence, uncomplicated; F17.210 Nicotine dependence, cigarettes, uncomplicated; F32.9 Major depressive disorder, single episode, unspecified; Z21 Asymptomatic human immunodeficiency virus [HIV] infection status; J45.909 Unspecified asthma, uncomplicated; B18.2 Chronic viral hepatitis C; Z88.8 Allergy status to other drugs, medicaments and biological substances; Z56.0 Unemployment, unspecified; Z59.0 Homelessness
CPT/HCPCS: 36415; 80053; 81003; 85027; 85660; 86780